=== PATIENT | female | born 1940 | race Caucasian/White ===

== ENCOUNTER 2017-06-30 05:38 | Inpatient (IN) | payer MEDICARE, OTHER ==
[~2017-06-30] VITALS: Ht 160 cm; Wt 80.0 kg
[2017-06-30] MEDS ORDERED: ONDANSETRON HCL 4 MG/2 ML VIAL ONE ×2 (06:15→10:49)
[2017-06-30] MEDS ORDERED: SODIUM CHLORIDE 0.9% 500 ML IV ONE (06:30)
[2017-06-30] MEDS ORDERED: PANTOPRAZOLE 40 MG/10 ML VIAL IV ONE (06:30)
[2017-06-30] MEDS ORDERED: MORPHINE SULFATE 10 MG/ML INJ 1ML SDV IV ONE (06:30)
[2017-06-30 06:40] LABS: Basophils # (auto) 0 uL; Basophils % (auto) 0.4 % (0.0-2.0); Eosinophils # (auto) 0 uL; Hematocrit 46.2 % (36.0-46.0); Hemoglobin 15.7 g/dL (12.2-16.2); Lymphocytes # (auto) 1.2 uL; Lymphocytes % (auto) 10.4 % (10.0-50.0); Mean Corpuscular Hemoglobin 32.1 pg (28.0-32.0); Mean Corpuscular Hgb Conc. 34.1 g/dL (32.0-36.0); Mean Corpuscular Volume 94.2 fL (80.0-100.0); Mean Platelet Volume 7.6 fL (6.9-10.8); Monocytes # (auto) 0.7 uL; Monocytes % (auto) 5.7 % (0.0-12.0); Neutrophils # (auto) 9.8 uL; Neutrophils % (auto) 83.5 % (37.0-80.0); Platelet Count (auto) 334 10^3/uL (140-450); Red Cell Distribution Width 13.4 % (11.8-14.3); White Blood Cell 11.8 10^3/uL (4.4-10.8)
[2017-06-30 06:57] LABS: Albumin 3.5 g/dL (3.4-5.0); Amylase 33 U/L (25-115); Anion Gap 12 (5-15); Aspartate Aminotransferase 24 U/L (15-37); BUN/Creatinine Ratio 14.7; Blood Urea Nitrogen 10 mg/dL (7-18); Calcium 11.7 mg/dL (8.5-10.1); Carbon Dioxide 23 mmol/L (21-32); Chloride 96 mmol/L (98-107); GFR African American 108 mL/min; GFR Non-African American 89 mL/min; Glucose 167 mg/dL (74-106); Magnesium 1.7 mg/dL (1.6-2.6); Sodium 131 mmol/L (136-145)
[2017-06-30 07:02] LABS: Alkaline Phosphatase 77 U/L (45-117); Bilirubin, Total 0.7 mg/dL (0.2-1.0); Total Protein 7.6 g/dL (6.4-8.2)
[2017-06-30 07:21] LABS: INR 0.98 (0.9-1.15); Prothrombin Time 10.7 sec (9.37-12.3)
[2017-06-30] MEDS ORDERED: PIPERACILLIN-TAZOB 3.375GM 100 ML IV ONE (07:30)
[2017-06-30] MEDS ORDERED: SODIUM CHLORIDE 0.9% 1,000 ML IV ONE ×2 (07:30→08:00)
[2017-06-30 07:34] LABS: Partial Thromboplastin Time 27.3 sec (22.64-33.71)
[2017-06-30] MEDS ORDERED: ONDANSETRON HCL 4 MG/2 ML VIAL IV PRN (08:00)
[2017-06-30] MEDS ORDERED: MORPHINE SULFATE 10 MG/ML INJ 1ML SDV IV PRN (08:00)
[2017-06-30] MEDS ORDERED: ALBUTEROL SULF 2.5 MG/0.5ML(0.5%) NEB SOLN NEB PRN ×2 (08:00→13:45)
[2017-06-30 09:25] VITALS: BP 141/57
[2017-06-30] MEDS ORDERED: LISINOPRIL 20 MG TAB PO SCH (10:00)
[2017-06-30 10:39] LABS: Urine RBC None Seen /hpf (0 - 4)
[2017-06-30] MEDS ORDERED: CISATRACURIUM BESYLATE (2MG/ML) 5ML VIAL IV ONE (10:46)
[2017-06-30] MEDS ORDERED: SUCCINYLCHOLINE CHLORIDE 20 MG/ML 10ML VIAL IV ONE (10:47)
[2017-06-30] MEDS ORDERED: PROPOFOL 10 MG/ML 20 ML IV ONE (10:49)
[2017-06-30] MEDS ORDERED: METOCLOPRAMIDE HCL 5MG/ml INJ 2ml VIAL ONE (10:49)
[2017-06-30] MEDS ORDERED: LIDOCAINE HCL 2 %PF INJ 10ML AMP IJ ONE (10:49)
[2017-06-30] MEDS ORDERED: fentaNYL CITRATE 100 MCG/2 ML VL ONE (10:49)
[2017-06-30] MEDS ORDERED: DEXAMETHASONE SOD PHOS 10MG/1ML VIAL INJ ONE (10:49)
[2017-06-30 10:56] LABS: Urine Bilirubin Negative (Negative); Urine Blood Negative /uL (Negative); Urine Color Yellow (Yellow); Urine Glucose Normal (Normal); Urine Ketone 2+ (Negative); Urine Mucus FEW (None Seen); Urine Nitrite Negative (Negative); Urine Squamous Epithelial Cell FEW /hpf (<5); Urine Urobilinogen Normal (Negative); Urine pH 5.5 (5.0-8.0)
[2017-06-30] MEDS ORDERED: GLYCOPYRROLATE 0.2 MG/ML 1ML VIAL ONE (11:47)
[2017-06-30] MEDS ORDERED: NEOSTIGMINE 1 MG/ML INJ (10mg/10ML VIAL) ONE (11:47)
[2017-06-30] MEDS ORDERED: METOPROLOL TARTRATE 1MG/1ML-5ML VIAL IV ONE (12:01)
[2017-06-30] MEDS ORDERED: HYDROmorphone HCL 2 MG/ML VL IV PRN (12:30)
[2017-06-30] MEDS ORDERED: KETOROLAC TROMETH 30 MG/ML 1ML VIAL IV ONE (12:30)
[2017-06-30] MEDS ORDERED: ONDANSETRON HCL 4 MG/2 ML VIAL IV ONE (12:30)
[2017-06-30] MEDS ORDERED: hydrALAZINE HCL 20 MG/ML VL IV PRN ×2 (12:30→13:45)
[2017-06-30] MEDS ORDERED: LABETALOL HCL 5 MG/ML 4ML SYRINGE IV PRN (12:30)
[2017-06-30] MEDS ORDERED: IPRATROPIUM BROM 0.5 MG/2.5ML INH SOL NEB PRN (13:45)
[2017-06-30] MEDS: SODIUM CHLORIDE 0.9% 1,000 ML IV SCH (13:45)
[2017-06-30 17:18] VITALS: BP 121/95
[2017-06-30] MEDS: metroNIDAZOLE 500MG/100ML 100 ML IV SCH ×2 (17:23→21:38)
[2017-06-30] MEDS: ALBUTEROL SULF 2.5 MG/0.5ML(0.5%) NEB SOLN NEB SCH (18:37)
[2017-06-30] MEDS: IPRATROPIUM BROM 0.5 MG/2.5ML INH SOL NEB SCH (18:37)
[2017-06-30] MEDS ORDERED: LISI-646 PO (18:57)
[2017-06-30] MEDS ORDERED: THEO400T PO (18:57)
[2017-06-30] MEDS ORDERED: FLUT250M2 INH (18:57)
[2017-06-30 20:00] VITALS: BP_SYST 116; BP_SYST 123; BP_DIAS 56; BP_DIAS 66
[2017-06-30 21:17] VITALS: BP 121/95
[2017-06-30] MEDS: HYDROmorphone HCL 2 MG/ML VL IV PRN (21:39)
[2017-06-30 22:00] VITALS: BP 116/66
[2017-07-01] VITALS (7 sets, daily range): BP systolic 110–134; BP diastolic 56–82
[2017-07-01] MEDS: SODIUM CHLORIDE 0.9% 1,000 ML IV SCH ×2 (03:08→16:25)
[2017-07-01] MEDS: metroNIDAZOLE 500MG/100ML 100 ML IV SCH ×3 (05:30→21:55)
[2017-07-01] MEDS: ALBUTEROL SULF 2.5 MG/0.5ML(0.5%) NEB SOLN NEB SCH ×3 (06:36→19:08)
[2017-07-01] MEDS: IPRATROPIUM BROM 0.5 MG/2.5ML INH SOL NEB SCH ×3 (06:36→19:08)
[2017-07-01 07:40] LABS: Basophils # (auto) 0 uL; Basophils % (auto) 0.1 % (0.0-2.0); Eosinophils # (auto) 0 uL; Hematocrit 39.5 % (36.0-46.0); Hemoglobin 13.1 g/dL (12.2-16.2); Lymphocytes # (auto) 1.4 uL; Lymphocytes % (auto) 11.4 % (10.0-50.0); Mean Corpuscular Hemoglobin 32.5 pg (28.0-32.0); Mean Corpuscular Hgb Conc. 33.2 g/dL (32.0-36.0); Mean Corpuscular Volume 97.7 fL (80.0-100.0); Mean Platelet Volume 7.6 fL (6.9-10.8); Monocytes # (auto) 1.1 uL; Monocytes % (auto) 9.2 % (0.0-12.0); Neutrophils # (auto) 9.6 uL; Neutrophils % (auto) 79.3 % (37.0-80.0); Platelet Count (auto) 244 10^3/uL (140-450); Red Cell Distribution Width 14.2 % (11.8-14.3); White Blood Cell 12.1 10^3/uL (4.4-10.8)
[2017-07-01 08:13] LABS: Albumin 2.7 g/dL (3.4-5.0); BUN/Creatinine Ratio 18.8; Bilirubin, Total 0.4 mg/dL (0.2-1.0); Calcium 9.5 mg/dL (8.5-10.1); Potassium 4.7 mmol/L (3.5-5.1); Total Protein 6.4 g/dL (6.4-8.2)
[2017-07-01] MEDS: cefTRIAXone 1GM/50ML D5W 50 ML IV SCH (08:40)
[2017-07-01] MEDS ORDERED: POTASSIUM CHLORIDE 20 MEQ, LIDOCAINE 1% (LOCAL ANESTH.) 2 ML in SODIUM CHL 0.9% 100 ML IV ONE (10:00)
[2017-07-01] MEDS ORDERED: FUROSEMIDE 20 MG/2 ML VIAL IV ONE (10:00)
[2017-07-01] MEDS ORDERED: PIPERACILLIN IV ONE (13:09)
[2017-07-01] MEDS ORDERED: TAZOBACTAM IV ONE (13:09)
[2017-07-01] MEDS: HYDROmorphone HCL 2 MG/ML VL IV PRN (21:55)
[2017-07-02] MEDS: ONDANSETRON HCL 4 MG/2 ML VIAL IV PRN ×2 (02:20→10:54)
[2017-07-02] MEDS: HYDROmorphone HCL 2 MG/ML VL IV PRN ×3 (02:20→21:48)
[2017-07-02] MEDS: ALBUTEROL SULF 2.5 MG/0.5ML(0.5%) NEB SOLN NEB SCH ×4 (02:21→19:21)
[2017-07-02 05:00] VITALS: BP 150/68
[2017-07-02] MEDS: metroNIDAZOLE 500MG/100ML 100 ML IV SCH ×3 (05:48→21:47)
[2017-07-02] MEDS: SODIUM CHLORIDE 0.9% 1,000 ML IV SCH ×2 (05:48→19:05)
[2017-07-02 06:33] LABS: BUN/Creatinine Ratio 29.3; Calcium 8.8 mg/dL (8.5-10.1); Magnesium 2.4 mg/dL (1.6-2.6); Potassium 4.3 mmol/L (3.5-5.1)
[2017-07-02 06:34] LABS: Basophils # (auto) 0 uL; Basophils % (auto) 0.1 % (0.0-2.0); Eosinophils # (auto) 0 uL; Eosinophils % (auto) 0.1 % (0.0-7.0); Hematocrit 39.8 % (36.0-46.0); Hemoglobin 13.3 g/dL (12.2-16.2); Lymphocytes # (auto) 1.4 uL; Lymphocytes % (auto) 12.1 % (10.0-50.0); Mean Corpuscular Hemoglobin 32.7 pg (28.0-32.0); Mean Corpuscular Hgb Conc. 33.4 g/dL (32.0-36.0); Mean Corpuscular Volume 98.2 fL (80.0-100.0); Mean Platelet Volume 7.8 fL (6.9-10.8); Monocytes # (auto) 1.2 uL; Monocytes % (auto) 10.5 % (0.0-12.0); Neutrophils # (auto) 8.9 uL; Neutrophils % (auto) 77.2 % (37.0-80.0); Platelet Count (auto) 253 10^3/uL (140-450); White Blood Cell 11.6 10^3/uL (4.4-10.8)
[2017-07-02] MEDS: IPRATROPIUM BROM 0.5 MG/2.5ML INH SOL NEB SCH ×4 (06:59→19:21)
[2017-07-02] MEDS: cefTRIAXone 1GM/50ML D5W 50 ML IV SCH (08:49)
[2017-07-02 09:00] VITALS: BP 131/76
[2017-07-02 13:07] VITALS: BP 96/50
[2017-07-02 16:43] VITALS: BP 121/56
[2017-07-02] MEDS ORDERED: FAMOTIDINE (10MG/ML) 2ML VL IV ONE (18:15)
[2017-07-02 20:00] VITALS: BP 140/74
[2017-07-02 21:47] VITALS: BP 140/74
[2017-07-03] MEDS: IPRATROPIUM BROM 0.5 MG/2.5ML INH SOL NEB SCH ×4 (00:22→19:01)
[2017-07-03] MEDS: ALBUTEROL SULF 2.5 MG/0.5ML(0.5%) NEB SOLN NEB SCH ×4 (00:22→19:01)
[2017-07-03 04:58] VITALS: BP 107/44
[2017-07-03] MEDS: metroNIDAZOLE 500MG/100ML 100 ML IV SCH ×3 (05:32→21:37)
[2017-07-03 09:59] VITALS: BP 112/69
[2017-07-03] MEDS: HYDROcodone-ACET 5/325MG TAB PO PRN (10:03)
[2017-07-03] MEDS: SODIUM CHLORIDE 0.9% 1,000 ML IV SCH ×2 (10:33→21:36)
[2017-07-03] MEDS: cefTRIAXone 1GM/50ML D5W 50 ML IV SCH (12:01)
[2017-07-03] MEDS: FAMOTIDINE (10MG/ML) 2ML VL IV SCH (12:01)
[2017-07-03 13:00] VITALS: BP 123/75
[2017-07-03 16:26] VITALS: BP 108/53
[2017-07-03 20:00] VITALS: BP 113/69
[2017-07-03] MEDS: HYDROmorphone HCL 2 MG/ML VL IV PRN (21:01)
[2017-07-03 22:00] VITALS: BP 113/69
[2017-07-04] MEDS: HYDROmorphone HCL 2 MG/ML VL IV PRN ×3 (03:20→20:32)
[2017-07-04] MEDS: ONDANSETRON HCL 4 MG/2 ML VIAL IV PRN (04:58)
[2017-07-04 05:11] VITALS: BP 114/70
[2017-07-04] MEDS: metroNIDAZOLE 500MG/100ML 100 ML IV SCH ×3 (05:40→21:58)
[2017-07-04] MEDS: IPRATROPIUM BROM 0.5 MG/2.5ML INH SOL NEB SCH ×4 (05:49→19:13)
[2017-07-04] MEDS: ALBUTEROL SULF 2.5 MG/0.5ML(0.5%) NEB SOLN NEB SCH ×2 (05:49)
[2017-07-04 06:20] LABS: Basophils # (auto) 0 uL; Basophils % (auto) 0.1 % (0.0-2.0); Eosinophils # (auto) 0.1 uL; Hematocrit 41.3 % (36.0-46.0); Hemoglobin 13.8 g/dL (12.2-16.2); Lymphocytes # (auto) 1.8 uL; Lymphocytes % (auto) 18.7 % (10.0-50.0); Mean Corpuscular Hemoglobin 32.6 pg (28.0-32.0); Mean Corpuscular Hgb Conc. 33.3 g/dL (32.0-36.0); Mean Corpuscular Volume 97.9 fL (80.0-100.0); Mean Platelet Volume 7.5 fL (6.9-10.8); Monocytes # (auto) 1.1 uL; Monocytes % (auto) 11.9 % (0.0-12.0); Neutrophils # (auto) 6.4 uL; Neutrophils % (auto) 68.3 % (37.0-80.0); Nucleated Red Blood Cells % 0.1 %; Platelet Count (auto) 282 10^3/uL (140-450); Red Cell Distribution Width 13.9 % (11.8-14.3); White Blood Cell 9.4 10^3/uL (4.4-10.8)
[2017-07-04] MEDS: cefTRIAXone 1GM/50ML D5W 50 ML IV SCH (08:51)
[2017-07-04 09:45] VITALS: BP 131/76
[2017-07-04] MEDS ORDERED: DIGOXIN (250MCG/ML) 2 ML AMPULE IV ONE (10:30)
[2017-07-04] MEDS ORDERED: METOPROLOL TARTRATE 50 MG TAB PO ONE (10:30)
[2017-07-04] MEDS ORDERED: ENOXAPARIN SOD 40 MG/0.4 ML SYRINGE SC ONE (10:30)
[2017-07-04] MEDS: SODIUM CHLORIDE 0.9% 1,000 ML IV SCH (11:05)
[2017-07-04] MEDS: FAMOTIDINE (10MG/ML) 2ML VL IV SCH (11:43)
[2017-07-04 12:16] VITALS: BP 123/69
[2017-07-04] MEDS: HYDROcodone-ACET 5/325MG TAB PO PRN (12:21)
[2017-07-04 16:12] VITALS: BP 107/79
[2017-07-04 20:00] VITALS: BP 98/59
[2017-07-04] MEDS: METOPROLOL TARTRATE 50 MG TAB PO SCH (21:59)
[2017-07-04 22:00] VITALS: BP 98/49
[2017-07-05] MEDS: HYDROmorphone HCL 2 MG/ML VL IV PRN ×4 (03:13→21:59)
[2017-07-05] MEDS: SODIUM CHLORIDE 0.9% 1,000 ML IV SCH (03:58)
[2017-07-05 05:00] VITALS: BP 114/69
[2017-07-05] MEDS: IPRATROPIUM BROM 0.5 MG/2.5ML INH SOL NEB SCH ×5 (06:02→19:05)
[2017-07-05] MEDS: metroNIDAZOLE 500MG/100ML 100 ML IV SCH ×3 (06:04→21:59)
[2017-07-05 06:17] LABS: Basophils # (auto) 0 uL; Basophils % (auto) 0.2 % (0.0-2.0); Eosinophils # (auto) 0.1 uL; Eosinophils % (auto) 0.7 % (0.0-7.0); Hematocrit 43.4 % (36.0-46.0); Hemoglobin 14.6 g/dL (12.2-16.2); Lymphocytes # (auto) 2.5 uL; Lymphocytes % (auto) 22.6 % (10.0-50.0); Mean Corpuscular Hemoglobin 32.8 pg (28.0-32.0); Mean Corpuscular Hgb Conc. 33.7 g/dL (32.0-36.0); Mean Corpuscular Volume 97.5 fL (80.0-100.0); Mean Platelet Volume 7.8 fL (6.9-10.8); Monocytes # (auto) 1.5 uL; Monocytes % (auto) 13.2 % (0.0-12.0); Neutrophils % (auto) 63.3 % (37.0-80.0); Nucleated Red Blood Cells % 0.1 %; Platelet Count (auto) 225 10^3/uL (140-450); Red Cell Distribution Width 13.7 % (11.8-14.3)
[2017-07-05 06:38] LABS: BUN/Creatinine Ratio 34.9; Calcium 8.6 mg/dL (8.5-10.1); Potassium 4.3 mmol/L (3.5-5.1)
[2017-07-05 08:00] VITALS: BP 115/68
[2017-07-05] MEDS: cefTRIAXone 1GM/50ML D5W 50 ML IV SCH (08:18)
[2017-07-05 09:00] VITALS: BP 115/68
[2017-07-05] MEDS: FAMOTIDINE (10MG/ML) 2ML VL IV SCH (09:25)
[2017-07-05] MEDS: ENOXAPARIN SOD 40 MG/0.4 ML SYRINGE SC SCH (09:25)
[2017-07-05] MEDS: METOPROLOL TARTRATE 50 MG TAB PO SCH (09:25)
[2017-07-05] MEDS: METOPROLOL TARTRATE 25 MG TAB PO SCH ×2 (10:15→21:59)
[2017-07-05] MEDS: HYDROcodone-ACET 5/325MG TAB PO PRN (12:39)
[2017-07-05] MEDS ORDERED: GASTROGRAFIN 120 ML SOL ONE (13:27)
[2017-07-05 17:12] VITALS: BP 126/83
[2017-07-05 22:00] VITALS: BP 137/76
[2017-07-06] VITALS (61 sets, daily range): BP systolic 57–136; BP diastolic 26–95
[2017-07-06] MEDS: HYDROmorphone HCL 2 MG/ML VL IV PRN ×2 (01:59→06:00)
[2017-07-06] MEDS: SODIUM CHLORIDE 0.9% 1,000 ML IV SCH (03:17)
[2017-07-06] MEDS: metroNIDAZOLE 500MG/100ML 100 ML IV SCH (05:59)
[2017-07-06] MEDS: IPRATROPIUM BROM 0.5 MG/2.5ML INH SOL NEB SCH ×4 (06:22→18:09)
[2017-07-06 06:55] LABS: Basophils # (auto) 0 uL; Basophils % (auto) 0.2 % (0.0-2.0); Eosinophils # (auto) 0 uL; Hematocrit 51.4 % (36.0-46.0); Hemoglobin 16.9 g/dL (12.2-16.2); Lymphocytes # (auto) 1.1 uL; Lymphocytes % (auto) 8.3 % (10.0-50.0); Mean Corpuscular Hemoglobin 32.4 pg (28.0-32.0); Mean Corpuscular Hgb Conc. 32.9 g/dL (32.0-36.0); Mean Corpuscular Volume 98.5 fL (80.0-100.0); Mean Platelet Volume 8.2 fL (6.9-10.8); Monocytes # (auto) 1.1 uL; Monocytes % (auto) 7.8 % (0.0-12.0); Neutrophils # (auto) 11.4 uL; Neutrophils % (auto) 83.7 % (37.0-80.0); Nucleated Red Blood Cells % 0.2 %; Platelet Count (auto) 240 10^3/uL (140-450); White Blood Cell 13.7 10^3/uL (4.4-10.8)
[2017-07-06 07:27] LABS: BUN/Creatinine Ratio 32.3; Calcium 8.7 mg/dL (8.5-10.1); Magnesium 2.7 mg/dL (1.6-2.6); Potassium 4.7 mmol/L (3.5-5.1)
[2017-07-06] MEDS ORDERED: ROCURONIUM 10MG/ML 10ML VIAL IV ONE (08:44)
[2017-07-06] MEDS ORDERED: ETOMIDATE (2MG/ML) 20ML VIAL IV ONE (08:44)
[2017-07-06] MEDS ORDERED: SUCCINYLCHOLINE CHLORIDE 20 MG/ML 10ML VIAL IV ONE (08:45)
[2017-07-06] MEDS: MIDAZOLAM DRIP 50 mg/50mL 50 ML IV SCH ×2 (09:11→17:40)
[2017-07-06] MEDS: NOREPINEPHRINE 8 MG/250ML KIT 250 ML IV SCH ×2 (09:11→17:40)
[2017-07-06] MEDS ORDERED: SODIUM CHLORIDE 0.9% 1,000 ML IV SCH (09:15)
[2017-07-06] MEDS ORDERED: PIPERACILLIN-TAZOB 2.25GM 50 ML IV ONE (09:15)
[2017-07-06 10:12] LABS: Allen Test Yes; Base Excess -1.5 mmol/L (-2.0-2.0); Blood 02Sat 96.8 % (96-100); Blood COHb 0.6 % (0.5-1.5); Blood MetHb 0.2 % (0.0-1.5); HCO3 26.3 mmol/L (22-26.0); HHb 3.2 % (0.0-5.0); MODE VENT - A/C; PCO2 56.5 mmHg (35.0-45.0); PCO2(T) 60.3 mmHg (35.0-45.0); PO2 99.7 mmHg (80.0-100.0); PO2(T) 109.1 mmHg (80.0-100.0); Room 0264D; Sample Type Arterial; pH 7.286 (7.350-7.450)
[2017-07-06] MEDS: FAMOTIDINE (10MG/ML) 2ML VL IV SCH (10:56)
[2017-07-06] MEDS: ENOXAPARIN SOD 40 MG/0.4 ML SYRINGE SC SCH (10:56)
[2017-07-06] MEDS: PIPERACILLIN-TAZOB 2.25GM 50 ML IV SCH ×2 (12:00→18:42)
[2017-07-06] MEDS: ALBUTEROL SULF 2.5 MG/0.5ML(0.5%) NEB SOLN NEB SCH ×2 (12:05→18:09)
[2017-07-06 13:07] LABS: Allen Test Modified; Base Excess -0.5 mmol/L (-2.0-2.0); Blood 02Sat 95.9 % (96-100); Blood COHb 0.2 % (0.5-1.5); Blood MetHb 0.2 % (0.0-1.5); HCO3 25.4 mmol/L (22-26.0); HHb 4.1 % (0.0-5.0); MODE VENT - A/C; O2Hb 95.5 % (94.0-97.0); PCO2 45.6 mmHg (35.0-45.0); PCO2(T) 46.6 mmHg (35.0-45.0); PO2 84.1 mmHg (80.0-100.0); PO2(T) 86.9 mmHg (80.0-100.0); Room 0264D; Sample Type Arterial; pH 7.363 (7.350-7.450)
[2017-07-06 15:08] LABS: Eosinophils # (auto) 0 uL; Hemoglobin 18.1 g/dL (12.2-16.2); Nucleated Red Blood Cells % 0.1 %
[2017-07-06 15:11] LABS: Basophils # (auto) 0 uL; Basophils % (auto) 0.3 % (0.0-2.0); Hematocrit 54.6 % (36.0-46.0); Lymphocytes # (auto) 2.4 uL; Mean Corpuscular Hemoglobin 32.8 pg (28.0-32.0); Mean Corpuscular Hgb Conc. 33.2 g/dL (32.0-36.0); Monocytes % (auto) 12.4 % (0.0-12.0); Neutrophils # (auto) 11.6 uL; Neutrophils % (auto) 72.3 % (37.0-80.0); Platelet Count (auto) 203 10^3/uL (140-450)
[2017-07-06 15:13] LABS: Albumin 3.1 g/dL (3.4-5.0); BUN/Creatinine Ratio 27.8; Bilirubin, Total 0.5 mg/dL (0.2-1.0); Calcium 8.4 mg/dL (8.5-10.1); Potassium 4.9 mmol/L (3.5-5.1); Total Protein 7.2 g/dL (6.4-8.2)
[2017-07-06] MEDS ORDERED: SODIUM CHLORIDE 0.9% 1,000 ML IV ONE (16:15)
[2017-07-06] MEDS: SOD CHL 0.9%/ KCL 20MEQ 1,000 ML IV SCH ×2 (17:00→22:30)
[2017-07-06] MEDS ORDERED: LEVOFLOXACIN 500MG 100 ML IV SCH (20:00)
[2017-07-06] MEDS ORDERED: FUROSEMIDE 20 MG/2 ML VIAL IV ONE (22:30)
[2017-07-07] VITALS (103 sets, daily range): BP systolic 89–151; BP diastolic 43–88
[2017-07-07] MEDS: IPRATROPIUM BROM 0.5 MG/2.5ML INH SOL NEB SCH ×4 (00:16→18:16)
[2017-07-07] MEDS: ALBUTEROL SULF 2.5 MG/0.5ML(0.5%) NEB SOLN NEB SCH ×4 (00:16→18:16)
[2017-07-07] MEDS: PIPERACILLIN-TAZOB 3.375GM 100 ML IV SCH ×4 (00:19→18:01)
[2017-07-07] MEDS: NOREPINEPHRINE 8 MG/250ML KIT 250 ML IV SCH ×2 (00:20→08:17)
[2017-07-07] MEDS: MIDAZOLAM DRIP 50 mg/50mL 50 ML IV SCH ×4 (00:20→20:16)
[2017-07-07 03:30] LABS: Allen Test Yes; Base Excess 0.3 mmol/L (-2.0-2.0); Blood 02Sat 91.9 % (96-100); Blood COHb 1.3 % (0.5-1.5); Blood MetHb 0.1 % (0.0-1.5); HCO3 24.7 mmol/L (22-26.0); MODE VENT - A/C; O2Hb 90.6 % (94.0-97.0); PCO2 39.5 mmHg (35.0-45.0); PCO2(T) 39.5 mmHg (35.0-45.0); PO2 60.6 mmHg (80.0-100.0); PO2(T) 60.6 mmHg (80.0-100.0); Sample Type Arterial; pH 7.414 (7.350-7.450)
[2017-07-07] MEDS: SOD CHL 0.9%/ KCL 20MEQ 1,000 ML IV SCH (06:30)
[2017-07-07] MEDS: SODIUM CHLORIDE 0.9% 1,000 ML IV SCH ×2 (10:00→22:50)
[2017-07-07] MEDS: LEVOFLOXACIN 500MG 100 ML IV SCH (10:01)
[2017-07-07] MEDS: ENOXAPARIN SOD 40 MG/0.4 ML SYRINGE SC SCH (10:01)
[2017-07-07] MEDS: FAMOTIDINE (10MG/ML) 2ML VL IV SCH (10:01)
[2017-07-07 10:47] LABS: Basophils # (auto) 0 uL; Basophils % (auto) 0.2 % (0.0-2.0); Eosinophils # (auto) 0 uL; Eosinophils % (auto) 0.1 % (0.0-7.0); Hematocrit 44.4 % (36.0-46.0); Hemoglobin 14.5 g/dL (12.2-16.2); Lymphocytes # (auto) 2.7 uL; Lymphocytes % (auto) 18.4 % (10.0-50.0); Mean Corpuscular Hemoglobin 31.9 pg (28.0-32.0); Mean Corpuscular Hgb Conc. 32.7 g/dL (32.0-36.0); Mean Corpuscular Volume 97.5 fL (80.0-100.0); Mean Platelet Volume 8.6 fL (6.9-10.8); Neutrophils # (auto) 9.8 uL; Neutrophils % (auto) 67.3 % (37.0-80.0); Nucleated Red Blood Cells % 0.1 %; Platelet Count (auto) 177 10^3/uL (140-450); Red Cell Distribution Width 14.1 % (11.8-14.3); White Blood Cell 14.6 10^3/uL (4.4-10.8)
[2017-07-07 11:10] LABS: Albumin 2.4 g/dL (3.4-5.0); BUN/Creatinine Ratio 30.9; Bilirubin, Total 0.7 mg/dL (0.2-1.0); Calcium 7.8 mg/dL (8.5-10.1); Potassium 4.2 mmol/L (3.5-5.1); Total Protein 5.8 g/dL (6.4-8.2)
[2017-07-07] MEDS ORDERED: TPN PER PHARMACY 0 ML IV SCH (11:15)
[2017-07-07 11:36] LABS: Magnesium 2.4 mg/dL (1.6-2.6); Phosphorus 1.9 mg/dL (2.5-4.90)
[2017-07-07] MEDS ORDERED: DEXTROSE (50%) 50ML SYRG IV SCH (12:45)
[2017-07-07] MEDS: ACCU-CHEK COMFORT CURVE STRIP VI SCH (18:01)
[2017-07-07] MEDS: InsuLIN REG 1unit/0.01ml Soln (100units/ml) SC SCH (18:45)
[2017-07-07] MEDS ORDERED: TPN PER PHARMACY IV NR ×7 (20:00)
[2017-07-08] VITALS (88 sets, daily range): BP systolic 83–148; BP diastolic 41–90
[2017-07-08] MEDS: MIDAZOLAM DRIP 50 mg/50mL 50 ML IV SCH ×3 (00:01→21:25)
[2017-07-08] MEDS: PIPERACILLIN-TAZOB 3.375GM 100 ML IV SCH ×5 (00:01→23:57)
[2017-07-08] MEDS: ACCU-CHEK COMFORT CURVE STRIP VI SCH ×4 (00:04→18:06)
[2017-07-08] MEDS: InsuLIN REG 1unit/0.01ml Soln (100units/ml) SC SCH ×4 (00:05→18:00)
[2017-07-08] MEDS: ALBUTEROL SULF 2.5 MG/0.5ML(0.5%) NEB SOLN NEB SCH ×4 (00:10→18:59)
[2017-07-08] MEDS: IPRATROPIUM BROM 0.5 MG/2.5ML INH SOL NEB SCH ×4 (00:10→18:59)
[2017-07-08 03:36] LABS: Allen Test Yes; Base Excess 0.8 mmol/L (-2.0-2.0); Blood 02Sat 95.8 % (96-100); Blood COHb 0.7 % (0.5-1.5); Blood MetHb 0.2 % (0.0-1.5); HCO3 24.9 mmol/L (22-26.0); HHb 4.2 % (0.0-5.0); MODE VENT - A/C; O2Hb 94.9 % (94.0-97.0); PCO2 38.3 mmHg (35.0-45.0); PCO2(T) 38.3 mmHg (35.0-45.0); PO2 80.6 mmHg (80.0-100.0); PO2(T) 80.6 mmHg (80.0-100.0); Sample Type Arterial; pH 7.431 (7.350-7.450)
[2017-07-08 03:49] LABS: Basophils # (auto) 0.2 uL; Basophils % (auto) 1.5 % (0.0-2.0); Eosinophils # (auto) 0.1 uL; Eosinophils % (auto) 0.9 % (0.0-7.0); Hematocrit 40.1 % (36.0-46.0); Hemoglobin 13.2 g/dL (12.2-16.2); Lymphocytes # (auto) 2.7 uL; Lymphocytes % (auto) 21.6 % (10.0-50.0); Mean Corpuscular Hemoglobin 32.1 pg (28.0-32.0); Mean Corpuscular Hgb Conc. 32.9 g/dL (32.0-36.0); Mean Corpuscular Volume 97.4 fL (80.0-100.0); Mean Platelet Volume 8.2 fL (6.9-10.8); Monocytes # (auto) 1.7 uL; Monocytes % (auto) 14.1 % (0.0-12.0); Neutrophils # (auto) 7.6 uL; Neutrophils % (auto) 61.9 % (37.0-80.0); Nucleated Red Blood Cells % 0.2 %; Platelet Count (auto) 139 10^3/uL (140-450); White Blood Cell 12.3 10^3/uL (4.4-10.8)
[2017-07-08 04:11] LABS: Albumin 2.1 g/dL (3.4-5.0); BUN/Creatinine Ratio 25.5; Bilirubin, Total 0.5 mg/dL (0.2-1.0); Calcium 7.8 mg/dL (8.5-10.1); Magnesium 2.2 mg/dL (1.6-2.6); Phosphorus 1.3 mg/dL (2.5-4.90); Potassium 3.4 mmol/L (3.5-5.1); Total Protein 5.2 g/dL (6.4-8.2)
[2017-07-08] MEDS: FAMOTIDINE (10MG/ML) 2ML VL IV SCH (09:45)
[2017-07-08] MEDS: LEVOFLOXACIN 500MG 100 ML IV SCH (09:45)
[2017-07-08] MEDS: ENOXAPARIN SOD 40 MG/0.4 ML SYRINGE SC SCH (09:45)
[2017-07-08] MEDS ORDERED: SODIUM CHLORIDE 0.9% 1,000 ML IV SCH (10:45)
[2017-07-08] MEDS ORDERED: POTASSIUM PHOSPHATE 44 MEQ in NS 0.9% 250 ML IV ONE (10:45)
[2017-07-08] MEDS: NOREPINEPHRINE 8 MG/250ML KIT 250 ML IV SCH (14:30)
[2017-07-08] MEDS ORDERED: TPN PER PHARMACY IV NR ×9 (20:00)
[2017-07-09] VITALS (79 sets, daily range): BP systolic 78–121; BP diastolic 35–71
[2017-07-09] MEDS: ACCU-CHEK COMFORT CURVE STRIP VI SCH ×5 (00:05→23:54)
[2017-07-09] MEDS: InsuLIN REG 1unit/0.01ml Soln (100units/ml) SC SCH ×5 (00:13→23:54)
[2017-07-09] MEDS: ALBUTEROL SULF 2.5 MG/0.5ML(0.5%) NEB SOLN NEB SCH ×4 (00:26→18:35)
[2017-07-09] MEDS: IPRATROPIUM BROM 0.5 MG/2.5ML INH SOL NEB SCH ×4 (00:26→18:36)
[2017-07-09] MEDS: MIDAZOLAM DRIP 50 mg/50mL 50 ML IV SCH ×5 (02:55→23:45)
[2017-07-09 03:43] LABS: Allen Test Modified; Base Excess 3.2 mmol/L (-2.0-2.0); Blood 02Sat 95.9 % (96-100); Blood COHb 1.3 % (0.5-1.5); Blood MetHb 0.1 % (0.0-1.5); HCO3 27.9 mmol/L (22-26.0); MODE VENT - A/C; O2Hb 94.6 % (94.0-97.0); Sample Type Arterial
[2017-07-09 04:18] LABS: Basophils # (auto) 0 uL; Basophils % (auto) 0.1 % (0.0-2.0); Eosinophils # (auto) 0.3 uL; Eosinophils % (auto) 3.1 % (0.0-7.0); Hematocrit 38.3 % (36.0-46.0); Hemoglobin 12.8 g/dL (12.2-16.2); Lymphocytes % (auto) 19.3 % (10.0-50.0); Mean Corpuscular Hemoglobin 32.7 pg (28.0-32.0); Mean Corpuscular Hgb Conc. 33.3 g/dL (32.0-36.0); Mean Corpuscular Volume 98.1 fL (80.0-100.0); Monocytes # (auto) 1.2 uL; Monocytes % (auto) 11.2 % (0.0-12.0); Neutrophils % (auto) 66.3 % (37.0-80.0); Nucleated Red Blood Cells % 0.1 %; Platelet Count (auto) 112 10^3/uL (140-450); Red Cell Distribution Width 14.4 % (11.8-14.3); White Blood Cell 10.6 10^3/uL (4.4-10.8)
[2017-07-09 04:41] LABS: Albumin 1.9 g/dL (3.4-5.0); BUN/Creatinine Ratio 23.9; Bilirubin, Total 0.4 mg/dL (0.2-1.0); Calcium 7.8 mg/dL (8.5-10.1); Phosphorus 2.7 mg/dL (2.5-4.90); Potassium 3.7 mmol/L (3.5-5.1); Total Protein 5.2 g/dL (6.4-8.2)
[2017-07-09] MEDS: PIPERACILLIN-TAZOB 3.375GM 100 ML IV SCH ×4 (06:20→23:53)
[2017-07-09] MEDS: NOREPINEPHRINE 8 MG/250ML KIT 250 ML IV SCH ×2 (09:11→23:54)
[2017-07-09] MEDS: FAMOTIDINE (10MG/ML) 2ML VL IV SCH (11:10)
[2017-07-09] MEDS: ENOXAPARIN SOD 40 MG/0.4 ML SYRINGE SC SCH (11:11)
[2017-07-09] MEDS: LEVOFLOXACIN 500MG 100 ML IV SCH (11:11)
[2017-07-09] MEDS: D5W 5% 1,000 ML IV SCH (12:30)
[2017-07-09] MEDS: POTASSIUM CHL 20MEQ/50ML 50 ML IV SCH ×2 (12:30→14:30)
[2017-07-09] MEDS ORDERED: D5W/SOD CHLO 0.9% 1,000 ML IV SCH (12:30)
[2017-07-09] MEDS ORDERED: SODIUM CHLORIDE 0.9% 1,000 ML IV SCH (12:50)
[2017-07-09] MEDS ORDERED: TPN PER PHARMACY IV NR ×10 (20:00)
[2017-07-10] VITALS (108 sets, daily range): BP systolic 81–133; BP diastolic 40–83
[2017-07-10] MEDS: ALBUTEROL SULF 2.5 MG/0.5ML(0.5%) NEB SOLN NEB SCH ×4 (00:14→18:33)
[2017-07-10] MEDS: IPRATROPIUM BROM 0.5 MG/2.5ML INH SOL NEB SCH ×4 (00:14→18:33)
[2017-07-10] MEDS: D5W 5% 1,000 ML IV SCH (01:06)
[2017-07-10 03:56] LABS: Basophils # (auto) 0 uL; Basophils % (auto) 0.2 % (0.0-2.0); Eosinophils # (auto) 0.6 uL; Eosinophils % (auto) 4.8 % (0.0-7.0); Hematocrit 38.6 % (36.0-46.0); Hemoglobin 12.6 g/dL (12.2-16.2); Lymphocytes # (auto) 1.8 uL; Lymphocytes % (auto) 13.8 % (10.0-50.0); Mean Corpuscular Hemoglobin 32.3 pg (28.0-32.0); Mean Corpuscular Hgb Conc. 32.7 g/dL (32.0-36.0); Mean Corpuscular Volume 98.6 fL (80.0-100.0); Mean Platelet Volume 9.3 fL (6.9-10.8); Monocytes # (auto) 1.1 uL; Monocytes % (auto) 8.7 % (0.0-12.0); Neutrophils # (auto) 9.4 uL; Neutrophils % (auto) 72.5 % (37.0-80.0); Nucleated Red Blood Cells % 0.1 %; Platelet Count (auto) 115 10^3/uL (140-450); Red Cell Distribution Width 14.2 % (11.8-14.3); White Blood Cell 12.9 10^3/uL (4.4-10.8)
[2017-07-10] MEDS: MIDAZOLAM DRIP 50 mg/50mL 50 ML IV SCH ×3 (04:15→21:00)
[2017-07-10 04:24] LABS: Albumin 1.9 g/dL (3.4-5.0); BUN/Creatinine Ratio 28.6; Bilirubin, Total 0.5 mg/dL (0.2-1.0); Magnesium 2.1 mg/dL (1.6-2.6); Phosphorus 2.1 mg/dL (2.5-4.90); Potassium 4.1 mmol/L (3.5-5.1); Total Protein 5.3 g/dL (6.4-8.2)
[2017-07-10 04:48] LABS: Allen Test Modified; Base Excess 3.9 mmol/L (-2.0-2.0); Blood 02Sat 95.9 % (96-100); Blood COHb 0.8 % (0.5-1.5); Blood MetHb 0.1 % (0.0-1.5); HCO3 29.4 mmol/L (22-26.0); HHb 4.1 % (0.0-5.0); MODE VENT - A/C; PCO2 47.7 mmHg (35.0-45.0); PCO2(T) 47.7 mmHg (35.0-45.0); Sample Type Arterial; pH 7.408 (7.350-7.450)
[2017-07-10] MEDS: PIPERACILLIN-TAZOB 3.375GM 100 ML IV SCH ×3 (05:39→18:25)
[2017-07-10] MEDS: ACCU-CHEK COMFORT CURVE STRIP VI SCH ×3 (05:39→18:25)
[2017-07-10] MEDS: InsuLIN REG 1unit/0.01ml Soln (100units/ml) SC SCH ×3 (05:39→18:00)
[2017-07-10] MEDS ORDERED: VANCOMYCIN PER PHARMACY 0 MG IV SCH (08:00)
[2017-07-10] MEDS ORDERED: NEUTRA-PHOS TABLET PO ONE (08:00)
[2017-07-10] MEDS ORDERED: FUROSEMIDE 40 MG/4 ML VIAL IV ONE ×2 (08:00→08:15)
[2017-07-10] MEDS ORDERED: metroNIDAZOLE 500MG/100ML 100 ML IV SCH (08:14)
[2017-07-10] MEDS: FAMOTIDINE (10MG/ML) 2ML VL IV SCH (10:17)
[2017-07-10] MEDS: ENOXAPARIN SOD 40 MG/0.4 ML SYRINGE SC SCH (10:17)
[2017-07-10] MEDS ORDERED: POTASSIUM PHOSPHATE 22 MEQ in SODIUM CHL 0.9% 100 ML IV ONE (11:30)
[2017-07-10] MEDS: VANCOMYCIN 1,250 MG in D5W 5% 250 ML IV SCH (12:14)
[2017-07-10] MEDS: metroNIDAZOLE 500MG/100ML 100 ML IV SCH ×2 (14:00→19:29)
[2017-07-10] MEDS: TPN PER PHARMACY IV NR ×10 (19:18)
[2017-07-11] VITALS (103 sets, daily range): BP systolic 82–139; BP diastolic 36–77
[2017-07-11] MEDS: InsuLIN REG 1unit/0.01ml Soln (100units/ml) SC SCH ×5 (00:05→23:46)
[2017-07-11] MEDS: PIPERACILLIN-TAZOB 3.375GM 100 ML IV SCH ×5 (00:05→23:46)
[2017-07-11] MEDS: ACCU-CHEK COMFORT CURVE STRIP VI SCH ×5 (00:05→23:46)
[2017-07-11] MEDS: ALBUTEROL SULF 2.5 MG/0.5ML(0.5%) NEB SOLN NEB SCH ×5 (00:36→23:59)
[2017-07-11] MEDS: IPRATROPIUM BROM 0.5 MG/2.5ML INH SOL NEB SCH ×5 (00:36→23:59)
[2017-07-11] MEDS: metroNIDAZOLE 500MG/100ML 100 ML IV SCH ×2 (01:55→08:20)
[2017-07-11] MEDS: MIDAZOLAM DRIP 50 mg/50mL 50 ML IV SCH ×3 (02:40→20:27)
[2017-07-11] MEDS: VANCOMYCIN 1,250 MG in D5W 5% 250 ML IV SCH ×2 (03:28→22:17)
[2017-07-11 03:54] LABS: Basophils # (auto) 0 uL; Basophils % (auto) 0.3 % (0.0-2.0); Eosinophils # (auto) 0.7 uL; Hematocrit 38.3 % (36.0-46.0); Hemoglobin 12.8 g/dL (12.2-16.2); Lymphocytes # (auto) 2.1 uL; Lymphocytes % (auto) 14.3 % (10.0-50.0); Mean Corpuscular Hemoglobin 32.4 pg (28.0-32.0); Mean Corpuscular Hgb Conc. 33.4 g/dL (32.0-36.0); Mean Corpuscular Volume 96.9 fL (80.0-100.0); Mean Platelet Volume 9.6 fL (6.9-10.8); Monocytes # (auto) 1.4 uL; Monocytes % (auto) 9.5 % (0.0-12.0); Neutrophils # (auto) 10.4 uL; Neutrophils % (auto) 70.9 % (37.0-80.0); Platelet Count (auto) 146 10^3/uL (140-450); Red Cell Distribution Width 14.1 % (11.8-14.3); White Blood Cell 14.6 10^3/uL (4.4-10.8)
[2017-07-11 04:23] LABS: Albumin 1.9 g/dL (3.4-5.0); BUN/Creatinine Ratio 27.1; Bilirubin, Total 0.6 mg/dL (0.2-1.0); Magnesium 2.1 mg/dL (1.6-2.6); Phosphorus 2.6 mg/dL (2.5-4.90); Total Protein 5.6 g/dL (6.4-8.2)
[2017-07-11] MEDS: NOREPINEPHRINE 8 MG/250ML KIT 250 ML IV SCH (05:15)
[2017-07-11 05:18] LABS: Allen Test Modified; Base Excess 5.5 mmol/L (-2.0-2.0); Blood 02Sat 96.3 % (96-100); Blood COHb 0.9 % (0.5-1.5); Blood MetHb 0.1 % (0.0-1.5); HHb 3.7 % (0.0-5.0); MODE VENT - A/C; O2Hb 95.3 % (94.0-97.0); PCO2 48.3 mmHg (35.0-45.0); PCO2(T) 48.3 mmHg (35.0-45.0); PO2 87.9 mmHg (80.0-100.0); PO2(T) 87.9 mmHg (80.0-100.0); Sample Type Arterial; pH 7.425 (7.350-7.450)
[2017-07-11] MEDS: ENOXAPARIN SOD 40 MG/0.4 ML SYRINGE SC SCH (09:30)
[2017-07-11] MEDS: FAMOTIDINE (10MG/ML) 2ML VL IV SCH (09:30)
[2017-07-11] MEDS ORDERED: METOCLOPRAMIDE HCL 5MG/ml INJ 2ml VIAL IV ONE (13:00)
[2017-07-11] MEDS ORDERED: FLUCONAZOLE 200MG/100ML 100 ML IV ONE (13:00)
[2017-07-11] MEDS: ALBUMIN 25% 50 ML IV SCH ×2 (15:06→21:38)
[2017-07-11] MEDS: METOCLOPRAMIDE HCL 5MG/ml INJ 2ml VIAL IV SCH ×2 (15:06→21:38)
[2017-07-11] MEDS: TPN PER PHARMACY IV NR ×10 (18:56)
[2017-07-11] MEDS ORDERED: TPN PER PHARMACY IV NR ×11 (20:00)
[2017-07-12] VITALS (100 sets, daily range): BP systolic 81–152; BP diastolic 37–85
[2017-07-12] MEDS: MIDAZOLAM DRIP 50 mg/50mL 50 ML IV SCH ×3 (01:30→16:10)
[2017-07-12 03:44] LABS: Basophils # (auto) 0 uL; Basophils % (auto) 0.1 % (0.0-2.0); Eosinophils # (auto) 0.4 uL; Eosinophils % (auto) 3.8 % (0.0-7.0); Hematocrit 36.5 % (36.0-46.0); Lymphocytes # (auto) 1.9 uL; Lymphocytes % (auto) 16.1 % (10.0-50.0); Mean Corpuscular Hemoglobin 32.2 pg (28.0-32.0); Mean Corpuscular Hgb Conc. 32.8 g/dL (32.0-36.0); Mean Corpuscular Volume 98.1 fL (80.0-100.0); Mean Platelet Volume 9.4 fL (6.9-10.8); Monocytes # (auto) 1.4 uL; Monocytes % (auto) 11.5 % (0.0-12.0); Neutrophils # (auto) 8.1 uL; Neutrophils % (auto) 68.5 % (37.0-80.0); Nucleated Red Blood Cells % 0.1 %; Platelet Count (auto) 158 10^3/uL (140-450); Red Cell Distribution Width 14.1 % (11.8-14.3); White Blood Cell 11.8 10^3/uL (4.4-10.8)
[2017-07-12 04:01] LABS: Albumin 2.4 g/dL (3.4-5.0); BUN/Creatinine Ratio 28.1; Bilirubin, Total 0.7 mg/dL (0.2-1.0); Calcium 8.3 mg/dL (8.5-10.1); Magnesium 2.3 mg/dL (1.6-2.6); Phosphorus 2.5 mg/dL (2.5-4.90); Potassium 4.2 mmol/L (3.5-5.1); Total Protein 5.8 g/dL (6.4-8.2)
[2017-07-12] MEDS: HYDROmorphone HCL 2 MG/ML VL IV PRN (04:04)
[2017-07-12] MEDS: InsuLIN REG 1unit/0.01ml Soln (100units/ml) SC SCH ×4 (05:38→23:55)
[2017-07-12] MEDS: ALBUMIN 25% 50 ML IV SCH ×3 (05:38→21:56)
[2017-07-12] MEDS: ACCU-CHEK COMFORT CURVE STRIP VI SCH ×4 (05:38→23:55)
[2017-07-12] MEDS: METOCLOPRAMIDE HCL 5MG/ml INJ 2ml VIAL IV SCH ×3 (05:38→21:56)
[2017-07-12] MEDS: PIPERACILLIN-TAZOB 3.375GM 100 ML IV SCH ×4 (06:04→23:56)
[2017-07-12] MEDS: IPRATROPIUM BROM 0.5 MG/2.5ML INH SOL NEB SCH ×3 (06:19→18:27)
[2017-07-12] MEDS: ALBUTEROL SULF 2.5 MG/0.5ML(0.5%) NEB SOLN NEB SCH ×3 (06:19→18:27)
[2017-07-12 07:29] LABS: Allen Test Yes; Base Excess 3.6 mmol/L (-2.0-2.0); Blood 02Sat 96.4 % (96-100); Blood COHb 0.8 % (0.5-1.5); Blood MetHb 0.1 % (0.0-1.5); HCO3 28.1 mmol/L (22-26.0); HHb 3.6 % (0.0-5.0); MODE VENT - A/C; O2Hb 95.5 % (94.0-97.0); PO2 93.7 mmHg (80.0-100.0); PO2(T) 93.7 mmHg (80.0-100.0); Sample Type Arterial; pH 7.443 (7.350-7.450)
[2017-07-12] MEDS ORDERED: NOREPINEPHRINE 8 MG/250ML KIT 250 ML IV ONE (08:40)
[2017-07-12] MEDS ORDERED: VITAMINS A & D (TOPICAL) OINT 5GM TOP ONE (08:40)
[2017-07-12] MEDS ORDERED: TPN PER PHARMACY IV NR ×21 (09:00→20:00)
[2017-07-12] MEDS: NOREPINEPHRINE 8 MG/250ML KIT 250 ML IV SCH (09:11)
[2017-07-12] MEDS: FAMOTIDINE (10MG/ML) 2ML VL IV SCH (09:38)
[2017-07-12] MEDS: FLUCONAZOLE 200MG/100ML 100 ML IV SCH (09:38)
[2017-07-12] MEDS: ENOXAPARIN SOD 40 MG/0.4 ML SYRINGE SC SCH (09:39)
[2017-07-12] MEDS: VANCOMYCIN 1,250 MG in D5W 5% 250 ML IV SCH (16:16)
[2017-07-13] VITALS (100 sets, daily range): BP systolic 87–161; BP diastolic 39–99
[2017-07-13] MEDS: ALBUTEROL SULF 2.5 MG/0.5ML(0.5%) NEB SOLN NEB SCH ×4 (00:27→18:33)
[2017-07-13] MEDS: IPRATROPIUM BROM 0.5 MG/2.5ML INH SOL NEB SCH ×4 (00:27→18:33)
[2017-07-13 04:09] LABS: Albumin 2.7 g/dL (3.4-5.0); BUN/Creatinine Ratio 27.3; Bilirubin, Total 0.6 mg/dL (0.2-1.0); Calcium 8.7 mg/dL (8.5-10.1); Magnesium 2.2 mg/dL (1.6-2.6); Phosphorus 2.6 mg/dL (2.5-4.90); Potassium 4.4 mmol/L (3.5-5.1); Total Protein 5.7 g/dL (6.4-8.2)
[2017-07-13] MEDS: VANCOMYCIN 1,250 MG in D5W 5% 250 ML IV SCH ×2 (04:17→16:00)
[2017-07-13] MEDS: ACCU-CHEK COMFORT CURVE STRIP VI SCH ×4 (06:35→23:30)
[2017-07-13] MEDS: METOCLOPRAMIDE HCL 5MG/ml INJ 2ml VIAL IV SCH ×3 (06:47→22:04)
[2017-07-13] MEDS: PIPERACILLIN-TAZOB 3.375GM 100 ML IV SCH ×4 (06:47→23:38)
[2017-07-13] MEDS: ALBUMIN 25% 50 ML IV SCH ×3 (06:47→22:06)
[2017-07-13] MEDS: InsuLIN REG 1unit/0.01ml Soln (100units/ml) SC SCH ×4 (06:48→23:30)
[2017-07-13] MEDS: MIDAZOLAM DRIP 50 mg/50mL 50 ML IV SCH ×2 (07:37→09:36)
[2017-07-13 07:41] LABS: Allen Test Yes; Base Excess 3.7 mmol/L (-2.0-2.0); Blood 02Sat 96.7 % (96-100); Blood COHb 0.7 % (0.5-1.5); Blood MetHb 0.1 % (0.0-1.5); HCO3 28.4 mmol/L (22-26.0); HHb 3.3 % (0.0-5.0); MODE VENT - A/C; O2Hb 95.9 % (94.0-97.0); PCO2 43.4 mmHg (35.0-45.0); PCO2(T) 43.4 mmHg (35.0-45.0); PO2 95.5 mmHg (80.0-100.0); PO2(T) 95.5 mmHg (80.0-100.0); Sample Type Arterial; pH 7.434 (7.350-7.450)
[2017-07-13] MEDS: NOREPINEPHRINE 8 MG/250ML KIT 250 ML IV SCH (09:11)
[2017-07-13] MEDS: ENOXAPARIN SOD 40 MG/0.4 ML SYRINGE SC SCH (09:34)
[2017-07-13] MEDS: FLUCONAZOLE 200MG/100ML 100 ML IV SCH (09:34)
[2017-07-13] MEDS: FAMOTIDINE (10MG/ML) 2ML VL IV SCH (09:34)
[2017-07-13] MEDS ORDERED: BISACODYL 10 MG RECT SUPP PR ONE (14:00)
[2017-07-13] MEDS ORDERED: IOHEXOL 350 MG/ML 100ML IJ ONE (16:16)
[2017-07-13] MEDS: HYDROmorphone HCL 2 MG/ML VL IV PRN (18:15)
[2017-07-13] MEDS: TPN PER PHARMACY IV NR ×10 (20:28)
[2017-07-13] MEDS: ENOXAPARIN SOD 100 MG/1 ML SYRINGE SC SCH (22:04)
[2017-07-14] VITALS (97 sets, daily range): BP systolic 92–169; BP diastolic 37–89
[2017-07-14] MEDS: ALBUTEROL SULF 2.5 MG/0.5ML(0.5%) NEB SOLN NEB SCH ×4 (00:08→18:22)
[2017-07-14] MEDS: IPRATROPIUM BROM 0.5 MG/2.5ML INH SOL NEB SCH ×4 (00:08→18:22)
[2017-07-14] MEDS: NOREPINEPHRINE 8 MG/250ML KIT 250 ML IV SCH (01:45)
[2017-07-14 03:52] LABS: Basophils # (auto) 0 uL; Basophils % (auto) 0.3 % (0.0-2.0); Eosinophils # (auto) 0.3 uL; Eosinophils % (auto) 4.7 % (0.0-7.0); Hematocrit 32.8 % (36.0-46.0); Lymphocytes # (auto) 1.4 uL; Lymphocytes % (auto) 19.4 % (10.0-50.0); Mean Corpuscular Hemoglobin 32.9 pg (28.0-32.0); Mean Corpuscular Hgb Conc. 33.4 g/dL (32.0-36.0); Mean Corpuscular Volume 98.3 fL (80.0-100.0); Mean Platelet Volume 8.8 fL (6.9-10.8); Monocytes # (auto) 1.3 uL; Monocytes % (auto) 17.6 % (0.0-12.0); Neutrophils # (auto) 4.3 uL; Platelet Count (auto) 204 10^3/uL (140-450); Red Cell Distribution Width 14.3 % (11.8-14.3); White Blood Cell 7.4 10^3/uL (4.4-10.8)
[2017-07-14 04:10] LABS: BUN/Creatinine Ratio 30.8; Bilirubin, Total 0.8 mg/dL (0.2-1.0); Calcium 8.7 mg/dL (8.5-10.1); Magnesium 2.4 mg/dL (1.6-2.6); Phosphorus 3.5 mg/dL (2.5-4.90); Total Protein 6.1 g/dL (6.4-8.2)
[2017-07-14] MEDS: VANCOMYCIN 1,250 MG in D5W 5% 250 ML IV SCH (04:48)
[2017-07-14] MEDS: METOCLOPRAMIDE HCL 5MG/ml INJ 2ml VIAL IV SCH ×3 (05:50→22:15)
[2017-07-14] MEDS: InsuLIN REG 1unit/0.01ml Soln (100units/ml) SC SCH ×3 (05:51→17:59)
[2017-07-14] MEDS: ACCU-CHEK COMFORT CURVE STRIP VI SCH ×3 (05:51→17:59)
[2017-07-14] MEDS: PIPERACILLIN-TAZOB 3.375GM 100 ML IV SCH ×4 (05:51→23:56)
[2017-07-14] MEDS: ALBUMIN 25% 50 ML IV SCH ×2 (05:51→13:35)
[2017-07-14 07:21] LABS: Allen Test Yes; Blood 02Sat 95.5 % (96-100); Blood MetHb 0.2 % (0.0-1.5); HCO3 28.4 mmol/L (22-26.0); HHb 4.4 % (0.0-5.0); MODE VENT - A/C; O2Hb 94.4 % (94.0-97.0); PCO2 46.5 mmHg (35.0-45.0); PCO2(T) 46.5 mmHg (35.0-45.0); PO2 84.2 mmHg (80.0-100.0); PO2(T) 84.2 mmHg (80.0-100.0); Sample Type Arterial; pH 7.403 (7.350-7.450)
[2017-07-14] MEDS: ENOXAPARIN SOD 100 MG/1 ML SYRINGE SC SCH ×2 (09:42→22:15)
[2017-07-14] MEDS: FLUCONAZOLE 200MG/100ML 100 ML IV SCH (09:42)
[2017-07-14] MEDS: FAMOTIDINE (10MG/ML) 2ML VL IV SCH (09:42)
[2017-07-14] MEDS: MIDAZOLAM DRIP 50 mg/50mL 50 ML IV SCH (10:51)
[2017-07-14 12:13] LABS: Albumin 3.1 g/dL (3.4-5.0); BUN/Creatinine Ratio 32.6; Bilirubin, Total 0.8 mg/dL (0.2-1.0); Calcium 8.7 mg/dL (8.5-10.1); Magnesium 2.5 mg/dL (1.6-2.6); Phosphorus 2.7 mg/dL (2.5-4.90); Potassium 4.1 mmol/L (3.5-5.1); Total Protein 6.1 g/dL (6.4-8.2)
[2017-07-14] MEDS ORDERED: Fibersource Hn 1 Liter GT SCH (14:30)
[2017-07-14] MEDS ORDERED: LIDOCAINE 1% HCL (LOCAL ANESTH.) INJ 20ML MDV ID ONE (15:45)
[2017-07-14] MEDS: VANCOMYCIN 1GM/250ML 250 ML IV SCH (16:00)
[2017-07-14] MEDS ORDERED: TPN PER PHARMACY IV NR ×10 (20:00)
[2017-07-14] MEDS: TPN PER PHARMACY IV NR ×10 (20:19)
[2017-07-15] VITALS (105 sets, daily range): BP systolic 68–155; BP diastolic 25–82
[2017-07-15] MEDS: InsuLIN REG 1unit/0.01ml Soln (100units/ml) SC SCH ×3 (00:25→12:00)
[2017-07-15] MEDS: ACCU-CHEK COMFORT CURVE STRIP VI SCH ×3 (00:25→12:00)
[2017-07-15] MEDS: VANCOMYCIN 1GM/250ML 250 ML IV SCH ×2 (04:23→15:50)
[2017-07-15] MEDS: METOCLOPRAMIDE HCL 5MG/ml INJ 2ml VIAL IV SCH ×3 (05:58→22:34)
[2017-07-15] MEDS: PIPERACILLIN-TAZOB 3.375GM 100 ML IV SCH ×3 (05:58→17:57)
[2017-07-15] MEDS: ALBUTEROL SULF 2.5 MG/0.5ML(0.5%) NEB SOLN NEB SCH ×3 (06:17→18:32)
[2017-07-15] MEDS: IPRATROPIUM BROM 0.5 MG/2.5ML INH SOL NEB SCH ×3 (06:17→18:32)
[2017-07-15 07:44] LABS: Base Excess 3.6 mmol/L (-2.0-2.0); Blood 02Sat 95.1 % (96-100); Blood COHb 0.1 % (0.5-1.5); Blood MetHb 0.3 % (0.0-1.5); HCO3 28.2 mmol/L (22-26.0); HHb 4.9 % (0.0-5.0); MODE VENT - A/C; O2Hb 94.7 % (94.0-97.0); PCO2 42.8 mmHg (35.0-45.0); PCO2(T) 42.8 mmHg (35.0-45.0); PO2 80.3 mmHg (80.0-100.0); PO2(T) 80.3 mmHg (80.0-100.0); Sample Type Arterial; pH 7.437 (7.350-7.450)
[2017-07-15 08:43] LABS: Albumin 2.9 g/dL (3.4-5.0); BUN/Creatinine Ratio 28.1; Bilirubin, Total 0.7 mg/dL (0.2-1.0); Calcium 8.7 mg/dL (8.5-10.1); Magnesium 2.3 mg/dL (1.6-2.6); Potassium 3.9 mmol/L (3.5-5.1)
[2017-07-15] MEDS: NOREPINEPHRINE 8 MG/250ML KIT 250 ML IV SCH ×2 (09:11→20:06)
[2017-07-15] MEDS: MIDAZOLAM DRIP 50 mg/50mL 50 ML IV SCH ×2 (09:11→15:50)
[2017-07-15] MEDS: FAMOTIDINE (10MG/ML) 2ML VL IV SCH (10:05)
[2017-07-15] MEDS: FLUCONAZOLE 200MG/100ML 100 ML IV SCH (10:05)
[2017-07-15] MEDS: ENOXAPARIN SOD 100 MG/1 ML SYRINGE SC SCH ×2 (10:06→22:35)
[2017-07-15] MEDS ORDERED: Fibersource Hn 1 Liter GT SCH (11:00)
[2017-07-15] MEDS ORDERED: TPN PER PHARMACY IV NR ×11 (20:00)
[2017-07-15] MEDS ORDERED: NOREPINEPHRINE 8 MG/250ML KIT 250 ML IV ONE (20:09)
[2017-07-16] VITALS (98 sets, daily range): BP systolic 79–147; BP diastolic 29–92
[2017-07-16] MEDS: IPRATROPIUM BROM 0.5 MG/2.5ML INH SOL NEB SCH ×4 (00:07→18:18)
[2017-07-16] MEDS: ALBUTEROL SULF 2.5 MG/0.5ML(0.5%) NEB SOLN NEB SCH ×4 (00:07→18:18)
[2017-07-16] MEDS: PIPERACILLIN-TAZOB 3.375GM 100 ML IV SCH ×4 (00:14→17:47)
[2017-07-16] MEDS: VANCOMYCIN 1GM/250ML 250 ML IV SCH (04:00)
[2017-07-16 04:20] LABS: Basophils # (auto) 0 uL; Basophils % (auto) 0.6 % (0.0-2.0); Eosinophils # (auto) 0.4 uL; Eosinophils % (auto) 6.1 % (0.0-7.0); Hematocrit 33.6 % (36.0-46.0); Hemoglobin 11.3 g/dL (12.2-16.2); Lymphocytes # (auto) 1.4 uL; Lymphocytes % (auto) 23.7 % (10.0-50.0); Mean Corpuscular Hemoglobin 32.9 pg (28.0-32.0); Mean Corpuscular Hgb Conc. 33.5 g/dL (32.0-36.0); Mean Corpuscular Volume 98.2 fL (80.0-100.0); Mean Platelet Volume 8.6 fL (6.9-10.8); Monocytes % (auto) 17.6 % (0.0-12.0); Platelet Count (auto) 257 10^3/uL (140-450); Red Cell Distribution Width 14.4 % (11.8-14.3); White Blood Cell 5.9 10^3/uL (4.4-10.8)
[2017-07-16 04:31] LABS: BUN/Creatinine Ratio 21.7; Calcium 8.6 mg/dL (8.5-10.1); Magnesium 2.5 mg/dL (1.6-2.6); Phosphorus 2.5 mg/dL (2.5-4.90); Potassium 3.9 mmol/L (3.5-5.1)
[2017-07-16 08:11] LABS: Allen Test Modified; Base Excess 2.2 mmol/L (-2.0-2.0); Blood 02Sat 94.5 % (96-100); Blood COHb 0.8 % (0.5-1.5); HCO3 26.5 mmol/L (22-26.0); HHb 5.5 % (0.0-5.0); MODE VENT - A/C; O2Hb 93.7 % (94.0-97.0); PCO2 40.4 mmHg (35.0-45.0); PCO2(T) 40.4 mmHg (35.0-45.0); PO2 76.1 mmHg (80.0-100.0); PO2(T) 76.1 mmHg (80.0-100.0); Sample Type Arterial; pH 7.435 (7.350-7.450)
[2017-07-16] MEDS: METOCLOPRAMIDE HCL 5MG/ml INJ 2ml VIAL IV SCH ×3 (08:46→22:00)
[2017-07-16] MEDS: FAMOTIDINE (10MG/ML) 2ML VL IV SCH (09:59)
[2017-07-16] MEDS: FLUCONAZOLE 200MG/100ML 100 ML IV SCH (09:59)
[2017-07-16] MEDS: ENOXAPARIN SOD 100 MG/1 ML SYRINGE SC SCH ×2 (09:59→22:00)
[2017-07-16] MEDS: SODIUM CHLORIDE 0.9% 1,000 ML IV SCH (13:04)
[2017-07-16] MEDS: MIDAZOLAM DRIP 50 mg/50mL 50 ML IV SCH (14:30)
[2017-07-16] MEDS: VANCOMYCIN 750 MG in SODIUM CHL 0.9% 250 ML IV SCH (18:00)
[2017-07-16] MEDS: NOREPINEPHRINE 8 MG/250ML KIT 250 ML IV SCH (20:06)
[2017-07-17] VITALS (93 sets, daily range): BP systolic 82–157; BP diastolic 17–112
[2017-07-17] MEDS: IPRATROPIUM BROM 0.5 MG/2.5ML INH SOL NEB SCH ×4 (00:14→17:14)
[2017-07-17] MEDS: ALBUTEROL SULF 2.5 MG/0.5ML(0.5%) NEB SOLN NEB SCH ×4 (00:14→17:14)
[2017-07-17 04:56] LABS: Hematocrit 32.6 % (36.0-46.0); Mean Corpuscular Hemoglobin 33.2 pg (28.0-32.0); Mean Corpuscular Hgb Conc. 33.8 g/dL (32.0-36.0); Mean Corpuscular Volume 98.4 fL (80.0-100.0); Mean Platelet Volume 8.8 fL (6.9-10.8); Platelet Count (auto) 282 10^3/uL (140-450); Red Cell Distribution Width 14.5 % (11.8-14.3); White Blood Cell 4.5 10^3/uL (4.4-10.8)
[2017-07-17 04:58] LABS: Metamyelocytes % 0; Myelocytes % 0; Promyelocytes % 0; Reactive Lymphocytes 0
[2017-07-17 05:19] LABS: Calcium 8.2 mg/dL (8.5-10.1); Potassium 4.4 mmol/L (3.5-5.1)
[2017-07-17] MEDS: SODIUM CHLORIDE 0.9% 1,000 ML IV SCH ×2 (05:25→22:05)
[2017-07-17] MEDS: METOCLOPRAMIDE HCL 5MG/ml INJ 2ml VIAL IV SCH ×3 (06:00→22:00)
[2017-07-17] MEDS: PIPERACILLIN-TAZOB 3.375GM 100 ML IV SCH ×4 (06:00→18:20)
[2017-07-17] MEDS: VANCOMYCIN 750 MG in SODIUM CHL 0.9% 250 ML IV SCH ×2 (06:00→18:20)
[2017-07-17 06:31] LABS: Large Platelets FEW; Platelet Estimate Adequate
[2017-07-17 07:48] LABS: Allen Test Yes; Base Excess -0.6 mmol/L (-2.0-2.0); Blood 02Sat 96.7 % (96-100); Blood COHb 0.6 % (0.5-1.5); Blood MetHb 0.1 % (0.0-1.5); HHb 3.3 % (0.0-5.0); MODE VENT - A/C; PCO2 34.7 mmHg (35.0-45.0); PCO2(T) 34.7 mmHg (35.0-45.0); PO2 96.8 mmHg (80.0-100.0); PO2(T) 96.8 mmHg (80.0-100.0); Sample Type Arterial
[2017-07-17] MEDS: FAMOTIDINE (10MG/ML) 2ML VL IV SCH (10:16)
[2017-07-17] MEDS: ENOXAPARIN SOD 100 MG/1 ML SYRINGE SC SCH ×2 (10:16→22:00)
[2017-07-17] MEDS: FLUCONAZOLE 200MG/100ML 100 ML IV SCH (10:16)
[2017-07-17] MEDS: NOREPINEPHRINE 8 MG/250ML KIT 250 ML IV SCH (20:06)
[2017-07-18] VITALS (63 sets, daily range): BP systolic 86–193; BP diastolic 45–101
[2017-07-18] MEDS: IPRATROPIUM BROM 0.5 MG/2.5ML INH SOL NEB SCH ×4 (00:24→19:04)
[2017-07-18] MEDS: ALBUTEROL SULF 2.5 MG/0.5ML(0.5%) NEB SOLN NEB SCH ×4 (00:24→19:04)
[2017-07-18 05:37] LABS: Basophils # (auto) 0 uL; Basophils % (auto) 0.9 % (0.0-2.0); Eosinophils # (auto) 0.3 uL; Eosinophils % (auto) 6.6 % (0.0-7.0); Hematocrit 33.8 % (36.0-46.0); Hemoglobin 11.1 g/dL (12.2-16.2); Lymphocytes # (auto) 1.2 uL; Lymphocytes % (auto) 27.4 % (10.0-50.0); Mean Corpuscular Hemoglobin 32.4 pg (28.0-32.0); Mean Corpuscular Volume 98.2 fL (80.0-100.0); Mean Platelet Volume 8.2 fL (6.9-10.8); Monocytes # (auto) 0.6 uL; Monocytes % (auto) 12.6 % (0.0-12.0); Neutrophils # (auto) 2.4 uL; Neutrophils % (auto) 52.5 % (37.0-80.0); Nucleated Red Blood Cells % 0.1 %; Platelet Count (auto) 286 10^3/uL (140-450); Red Cell Distribution Width 14.6 % (11.8-14.3); White Blood Cell 4.5 10^3/uL (4.4-10.8)
[2017-07-18 05:43] LABS: BUN/Creatinine Ratio 19.6; Calcium 8.2 mg/dL (8.5-10.1)
[2017-07-18] MEDS: METOCLOPRAMIDE HCL 5MG/ml INJ 2ml VIAL IV SCH ×3 (06:00→21:36)
[2017-07-18] MEDS: PIPERACILLIN-TAZOB 3.375GM 100 ML IV SCH ×4 (06:05→17:45)
[2017-07-18] MEDS: VANCOMYCIN 750 MG in SODIUM CHL 0.9% 250 ML IV SCH (06:05)
[2017-07-18 07:52] LABS: Allen Test Modified; Base Excess -2.8 mmol/L (-2.0-2.0); Blood 02Sat 94.5 % (96-100); Blood COHb 0.7 % (0.5-1.5); Blood MetHb 0.2 % (0.0-1.5); HCO3 20.6 mmol/L (22-26.0); HHb 5.5 % (0.0-5.0); MODE VENT - A/C; O2Hb 93.6 % (94.0-97.0); PCO2 31.3 mmHg (35.0-45.0); PCO2(T) 31.3 mmHg (35.0-45.0); PO2 77.7 mmHg (80.0-100.0); PO2(T) 77.7 mmHg (80.0-100.0); Sample Type Arterial; pH 7.436 (7.350-7.450)
[2017-07-18] MEDS: MIDAZOLAM DRIP 50 mg/50mL 50 ML IV SCH (09:11)
[2017-07-18] MEDS: FLUCONAZOLE 200MG/100ML 100 ML IV SCH (10:21)
[2017-07-18] MEDS: FAMOTIDINE (10MG/ML) 2ML VL IV SCH (10:21)
[2017-07-18] MEDS: ENOXAPARIN SOD 100 MG/1 ML SYRINGE SC SCH ×2 (10:21→21:36)
[2017-07-18 11:23] LABS: Allen Test Modified; Base Excess -2.6 mmol/L (-2.0-2.0); Blood 02Sat 95.8 % (96-100); Blood COHb 0.5 % (0.5-1.5); Blood MetHb 0.3 % (0.0-1.5); HCO3 23.3 mmol/L (22-26.0); HHb 4.2 % (0.0-5.0); MODE VENT - CPAP; PCO2 43.8 mmHg (35.0-45.0); PCO2(T) 43.8 mmHg (35.0-45.0); PO2 89.6 mmHg (80.0-100.0); PO2(T) 89.6 mmHg (80.0-100.0); Pressure Support 8; Sample Type Arterial; pH 7.343 (7.350-7.450)
[2017-07-18] MEDS ORDERED: POTASSIUM CHL 10% (20 MEQ/15ML) 15ml ORAL SOLN GT ONE (12:15)
[2017-07-18] MEDS ORDERED: FUROSEMIDE 40 MG/4 ML VIAL IV ONE (12:15)
[2017-07-18] MEDS ORDERED: METOPROLOL TARTRATE 25 MG TAB PO ONE (12:15)
[2017-07-18] MEDS: SODIUM CHLORIDE 0.9% 1,000 ML IV SCH (14:45)
[2017-07-18] MEDS: NOREPINEPHRINE 8 MG/250ML KIT 250 ML IV SCH (20:06)
[2017-07-18] MEDS: METOPROLOL TARTRATE 25 MG TAB PO SCH (21:36)
[2017-07-19] VITALS (82 sets, daily range): BP systolic 73–195; BP diastolic 39–110
[2017-07-19] MEDS: PIPERACILLIN-TAZOB 3.375GM 100 ML IV SCH ×5 (00:01→23:49)
[2017-07-19] MEDS: ALBUTEROL SULF 2.5 MG/0.5ML(0.5%) NEB SOLN NEB SCH ×4 (00:21→17:50)
[2017-07-19] MEDS: IPRATROPIUM BROM 0.5 MG/2.5ML INH SOL NEB SCH ×4 (00:21→17:50)
[2017-07-19 04:20] LABS: Albumin 2.2 g/dL (3.4-5.0); BUN/Creatinine Ratio 16.3; Calcium 8.1 mg/dL (8.5-10.1); Potassium 3.4 mmol/L (3.5-5.1)
[2017-07-19 04:22] LABS: Bilirubin, Total 0.5 mg/dL (0.2-1.0); Total Protein 5.4 g/dL (6.4-8.2)
[2017-07-19] MEDS: METOCLOPRAMIDE HCL 5MG/ml INJ 2ml VIAL IV SCH (05:59)
[2017-07-19] MEDS: MIDAZOLAM DRIP 50 mg/50mL 50 ML IV SCH ×2 (09:11→19:00)
[2017-07-19 09:41] LABS: Allen Test Modified; Base Excess 1.6 mmol/L (-2.0-2.0); Blood 02Sat 91.7 % (96-100); Blood COHb 0.7 % (0.5-1.5); Blood MetHb 0.1 % (0.0-1.5); HCO3 25.9 mmol/L (22-26.0); HHb 8.2 % (0.0-5.0); MODE VENT - CPAP; PCO2 39.4 mmHg (35.0-45.0); PCO2(T) 39.4 mmHg (35.0-45.0); Pressure Support 8; Sample Type Arterial; Spont Vt 455; pH 7.435 (7.350-7.450)
[2017-07-19] MEDS: SODIUM CHLORIDE 0.9% 1,000 ML IV SCH (09:47)
[2017-07-19] MEDS: FLUCONAZOLE 200MG/100ML 100 ML IV SCH (09:47)
[2017-07-19] MEDS: POTASSIUM CHL 10% (20 MEQ/15ML) 15ml ORAL SOLN GT SCH (09:47)
[2017-07-19] MEDS: METOPROLOL TARTRATE 25 MG TAB PO SCH ×2 (09:48→21:23)
[2017-07-19] MEDS: ENOXAPARIN SOD 100 MG/1 ML SYRINGE SC SCH ×2 (09:48→21:23)
[2017-07-19] MEDS: FAMOTIDINE (10MG/ML) 2ML VL IV SCH (09:48)
[2017-07-19] MEDS: FUROSEMIDE 40 MG/4 ML VIAL IV SCH (09:48)
[2017-07-19] MEDS ORDERED: POTASSIUM CHL 10% (20 MEQ/15ML) 15ml ORAL SOLN GT ONE (13:15)
[2017-07-19] MEDS ORDERED: VITAMINS A & D (TOPICAL) OINT 5GM TOP ONE (15:24)
[2017-07-19] MEDS ORDERED: ETOMIDATE (2MG/ML) 20ML VIAL IV ONE (18:05)
[2017-07-19] MEDS ORDERED: SUCCINYLCHOLINE CHLORIDE 20 MG/ML 10ML VIAL IV ONE (18:05)
[2017-07-19] MEDS ORDERED: MIDAZOLAM DRIP 50 mg/50mL 50 ML IV ONE (18:14)
[2017-07-19] MEDS ORDERED: LABETALOL HCL 5 MG/ML ML 20ML VIAL IV ONE ×2 (18:16→18:30)
[2017-07-19] MEDS: NOREPINEPHRINE 8 MG/250ML KIT 250 ML IV SCH ×2 (19:33→21:38)
[2017-07-19] MEDS ORDERED: NOREPINEPHRINE 8 MG/250ML KIT 250 ML IV ONE (19:38)
[2017-07-19] MEDS ORDERED: FUROSEMIDE 40 MG/4 ML VIAL ONE (19:42)
[2017-07-19] MEDS ORDERED: FUROSEMIDE 40 MG/4 ML VIAL IV ONE (19:45)
[2017-07-19 20:30] LABS: Allen Test Yes; Base Excess 1.3 mmol/L (-2.0-2.0); Blood 02Sat 99.3 % (96-100); Blood COHb 1.2 % (0.5-1.5); Blood MetHb 0.2 % (0.0-1.5); HCO3 27.9 mmol/L (22-26.0); HHb 0.7 % (0.0-5.0); MODE VENT - A/C; O2Hb 97.9 % (94.0-97.0); PCO2 52.2 mmHg (35.0-45.0); PCO2(T) 52.2 mmHg (35.0-45.0); PO2 269.2 mmHg (80.0-100.0); PO2(T) 269.2 mmHg (80.0-100.0); Sample Type Arterial; pH 7.346 (7.350-7.450)
[2017-07-20] VITALS (106 sets, daily range): BP systolic 84–141; BP diastolic 33–94
[2017-07-20] MEDS: ALBUTEROL SULF 2.5 MG/0.5ML(0.5%) NEB SOLN NEB SCH ×5 (00:04→23:39)
[2017-07-20] MEDS: IPRATROPIUM BROM 0.5 MG/2.5ML INH SOL NEB SCH ×5 (00:04→23:39)
[2017-07-20 00:37] LABS: Base Excess 3.1 mmol/L (-2.0-2.0); Blood COHb 0.6 % (0.5-1.5); Blood MetHb 0.1 % (0.0-1.5); HCO3 26.8 mmol/L (22-26.0); MODE VENT - A/C; O2Hb 93.3 % (94.0-97.0); PO2 71.1 mmHg (80.0-100.0); PO2(T) 71.1 mmHg (80.0-100.0); Sample Type Arterial; pH 7.467 (7.350-7.450)
[2017-07-20] MEDS: MIDAZOLAM DRIP 50 mg/50mL 50 ML IV SCH ×2 (03:00→09:41)
[2017-07-20 04:28] LABS: Basophils # (auto) 0.1 uL; Basophils % (auto) 0.6 % (0.0-2.0); Eosinophils # (auto) 0.2 uL; Eosinophils % (auto) 2.9 % (0.0-7.0); Hematocrit 34.9 % (36.0-46.0); Hemoglobin 11.8 g/dL (12.2-16.2); Lymphocytes # (auto) 1.6 uL; Lymphocytes % (auto) 20.2 % (10.0-50.0); Mean Corpuscular Hemoglobin 32.9 pg (28.0-32.0); Mean Corpuscular Hgb Conc. 33.8 g/dL (32.0-36.0); Mean Corpuscular Volume 97.3 fL (80.0-100.0); Mean Platelet Volume 8.1 fL (6.9-10.8); Monocytes # (auto) 0.9 uL; Monocytes % (auto) 10.8 % (0.0-12.0); Neutrophils # (auto) 5.3 uL; Neutrophils % (auto) 65.5 % (37.0-80.0); Platelet Count (auto) 319 10^3/uL (140-450); Red Cell Distribution Width 14.4 % (11.8-14.3)
[2017-07-20 04:45] LABS: Albumin 2.5 g/dL (3.4-5.0); Calcium 8.7 mg/dL (8.5-10.1)
[2017-07-20] MEDS: HYDROmorphone HCL 2 MG/ML VL IV PRN ×3 (04:45→21:25)
[2017-07-20 05:01] LABS: Bilirubin, Total 0.5 mg/dL (0.2-1.0); Potassium 3.3 mmol/L (3.5-5.1); Total Protein 6.2 g/dL (6.4-8.2)
[2017-07-20] MEDS: PIPERACILLIN-TAZOB 3.375GM 100 ML IV SCH ×3 (06:00→17:27)
[2017-07-20 09:35] LABS: Allen Test Yes; Base Excess -1.9 mmol/L (-2.0-2.0); Blood 02Sat 94.4 % (96-100); Blood COHb 0.6 % (0.5-1.5); Blood MetHb 0.2 % (0.0-1.5); HCO3 20.2 mmol/L (22-26.0); HHb 5.6 % (0.0-5.0); MODE VENT - A/C; O2Hb 93.6 % (94.0-97.0); PCO2 26.6 mmHg (35.0-45.0); PCO2(T) 26.6 mmHg (35.0-45.0); PIP 23; PO2 71.2 mmHg (80.0-100.0); PO2(T) 71.2 mmHg (80.0-100.0); Sample Type Arterial; Spont Vt 551; pH 7.498 (7.350-7.450)
[2017-07-20] MEDS: NOREPINEPHRINE 8 MG/250ML KIT 250 ML IV SCH (09:41)
[2017-07-20] MEDS: FAMOTIDINE (10MG/ML) 2ML VL IV SCH (09:42)
[2017-07-20] MEDS: ENOXAPARIN SOD 100 MG/1 ML SYRINGE SC SCH ×2 (09:42→21:25)
[2017-07-20] MEDS: METOPROLOL TARTRATE 25 MG TAB PO SCH (09:42)
[2017-07-20] MEDS: POTASSIUM CHL 10% (20 MEQ/15ML) 15ml ORAL SOLN GT SCH (09:42)
[2017-07-20] MEDS: FLUCONAZOLE 200MG/100ML 100 ML IV SCH (09:42)
[2017-07-20] MEDS: FUROSEMIDE 40 MG/4 ML VIAL IV SCH (09:42)
[2017-07-20] MEDS ORDERED: POTASSIUM CHL 10% (20 MEQ/15ML) 15ml ORAL SOLN GT ONE (12:30)
[2017-07-21] VITALS (105 sets, daily range): BP systolic 80–152; BP diastolic 37–81
[2017-07-21] MEDS: MIDAZOLAM DRIP 50 mg/50mL 50 ML IV SCH ×3 (01:07→20:13)
[2017-07-21 04:05] LABS: Basophils # (auto) 0 uL; Basophils % (auto) 0.7 % (0.0-2.0); Eosinophils # (auto) 0.3 uL; Eosinophils % (auto) 5.2 % (0.0-7.0); Hematocrit 32.1 % (36.0-46.0); Hemoglobin 10.8 g/dL (12.2-16.2); Mean Corpuscular Hemoglobin 32.8 pg (28.0-32.0); Mean Corpuscular Hgb Conc. 33.7 g/dL (32.0-36.0); Mean Corpuscular Volume 97.3 fL (80.0-100.0); Mean Platelet Volume 8.4 fL (6.9-10.8); Monocytes # (auto) 0.8 uL; Monocytes % (auto) 11.9 % (0.0-12.0); Neutrophils # (auto) 3.3 uL; Neutrophils % (auto) 51.2 % (37.0-80.0); Nucleated Red Blood Cells % 0.1 %; Platelet Count (auto) 266 10^3/uL (140-450); White Blood Cell 6.4 10^3/uL (4.4-10.8)
[2017-07-21] MEDS: PIPERACILLIN-TAZOB 3.375GM 100 ML IV SCH ×4 (06:02→17:43)
[2017-07-21 07:19] LABS: BUN/Creatinine Ratio 18.4; Calcium 8.9 mg/dL (8.5-10.1); Potassium 3.4 mmol/L (3.5-5.1)
[2017-07-21] MEDS: ALBUTEROL SULF 2.5 MG/0.5ML(0.5%) NEB SOLN NEB SCH ×3 (07:30→19:14)
[2017-07-21] MEDS: IPRATROPIUM BROM 0.5 MG/2.5ML INH SOL NEB SCH ×3 (07:30→19:14)
[2017-07-21 08:13] LABS: Allen Test Modified; Base Excess 3.9 mmol/L (-2.0-2.0); Blood 02Sat 95.4 % (96-100); Blood COHb 0.7 % (0.5-1.5); Blood MetHb 0.1 % (0.0-1.5); HCO3 26.9 mmol/L (22-26.0); HHb 4.6 % (0.0-5.0); MODE VENT - A/C; O2Hb 94.6 % (94.0-97.0); PO2 78.3 mmHg (80.0-100.0); PO2(T) 78.3 mmHg (80.0-100.0); Sample Type Arterial; pH 7.504 (7.350-7.450)
[2017-07-21] MEDS: FLUCONAZOLE 200MG/100ML 100 ML IV SCH (09:36)
[2017-07-21] MEDS: POTASSIUM CHL 10% (20 MEQ/15ML) 15ml ORAL SOLN GT SCH (09:36)
[2017-07-21] MEDS: FAMOTIDINE (10MG/ML) 2ML VL IV SCH (09:36)
[2017-07-21] MEDS: ENOXAPARIN SOD 100 MG/1 ML SYRINGE SC SCH ×2 (09:37→22:00)
[2017-07-21] MEDS: FUROSEMIDE 40 MG/4 ML VIAL IV SCH (09:56)
[2017-07-21] MEDS ORDERED: POTASSIUM CHL 10% (20 MEQ/15ML) 15ml ORAL SOLN GT ONE (13:30)
[2017-07-21] MEDS ORDERED: DIGOXIN (250MCG/ML) 2 ML AMPULE IV ONE (13:30)
[2017-07-21] MEDS: NOREPINEPHRINE 8 MG/250ML KIT 250 ML IV SCH (19:33)
[2017-07-21] MEDS: HYDROmorphone HCL 2 MG/ML VL IV PRN (21:25)
[2017-07-22] VITALS (100 sets, daily range): BP systolic 84–156; BP diastolic 45–85
[2017-07-22] MEDS: ALBUTEROL SULF 2.5 MG/0.5ML(0.5%) NEB SOLN NEB SCH ×4 (00:15→18:33)
[2017-07-22] MEDS: IPRATROPIUM BROM 0.5 MG/2.5ML INH SOL NEB SCH ×4 (00:15→18:33)
[2017-07-22 04:11] LABS: Basophils # (auto) 0 uL; Basophils % (auto) 0.6 % (0.0-2.0); Eosinophils # (auto) 0.5 uL; Hematocrit 31.5 % (36.0-46.0); Hemoglobin 10.5 g/dL (12.2-16.2); Lymphocytes # (auto) 1.7 uL; Lymphocytes % (auto) 35.2 % (10.0-50.0); Mean Corpuscular Hgb Conc. 33.4 g/dL (32.0-36.0); Mean Corpuscular Volume 98.6 fL (80.0-100.0); Mean Platelet Volume 8.7 fL (6.9-10.8); Monocytes # (auto) 0.6 uL; Neutrophils # (auto) 2.1 uL; Neutrophils % (auto) 42.2 % (37.0-80.0); Nucleated Red Blood Cells % 0.1 %; Platelet Count (auto) 223 10^3/uL (140-450); Red Cell Distribution Width 14.9 % (11.8-14.3); White Blood Cell 4.9 10^3/uL (4.4-10.8)
[2017-07-22 04:30] LABS: Albumin 2.5 g/dL (3.4-5.0); BUN/Creatinine Ratio 19.4; Bilirubin, Total 0.5 mg/dL (0.2-1.0); Calcium 8.8 mg/dL (8.5-10.1); Potassium 3.5 mmol/L (3.5-5.1); Total Protein 6.2 g/dL (6.4-8.2)
[2017-07-22] MEDS: PIPERACILLIN-TAZOB 3.375GM 100 ML IV SCH ×4 (06:00→18:12)
[2017-07-22] MEDS: ENOXAPARIN SOD 100 MG/1 ML SYRINGE SC SCH ×2 (10:10→22:00)
[2017-07-22] MEDS: FUROSEMIDE 40 MG/4 ML VIAL IV SCH (10:11)
[2017-07-22] MEDS: FAMOTIDINE (10MG/ML) 2ML VL IV SCH (10:11)
[2017-07-22] MEDS: POTASSIUM CHL 10% (20 MEQ/15ML) 15ml ORAL SOLN GT SCH (10:11)
[2017-07-22] MEDS: DIGOXIN (250MCG/ML) 2 ML AMPULE IV SCH (10:13)
[2017-07-22] MEDS: FLUCONAZOLE 200MG/100ML 100 ML IV SCH (10:30)
[2017-07-22 10:54] LABS: Allen Test Yes; Base Excess 3.8 mmol/L (-2.0-2.0); Blood 02Sat 95.7 % (96-100); Blood COHb 0.8 % (0.5-1.5); Blood MetHb 0.2 % (0.0-1.5); HCO3 27.2 mmol/L (22-26.0); HHb 4.3 % (0.0-5.0); MODE VENT - A/C; O2Hb 94.7 % (94.0-97.0); PCO2 36.8 mmHg (35.0-45.0); PCO2(T) 36.8 mmHg (35.0-45.0); PIP 23; Sample Type Arterial; Spont Vt 557; pH 7.486 (7.350-7.450)
[2017-07-22] MEDS ORDERED: POTASSIUM CHL 10% (20 MEQ/15ML) 15ml ORAL SOLN GT ONE (13:30)
[2017-07-22] MEDS ORDERED: FUROSEMIDE 40 MG/4 ML VIAL IV ONE (13:30)
[2017-07-22] MEDS: MIDAZOLAM DRIP 50 mg/50mL 50 ML IV SCH (18:36)
[2017-07-22] MEDS: NOREPINEPHRINE 8 MG/250ML KIT 250 ML IV SCH (19:33)
[2017-07-23] VITALS (64 sets, daily range): BP systolic 109–156; BP diastolic 45–96
[2017-07-23] MEDS: MIDAZOLAM DRIP 50 mg/50mL 50 ML IV SCH (00:20)
[2017-07-23] MEDS: ALBUTEROL SULF 2.5 MG/0.5ML(0.5%) NEB SOLN NEB SCH ×4 (00:32→19:07)
[2017-07-23] MEDS: IPRATROPIUM BROM 0.5 MG/2.5ML INH SOL NEB SCH ×4 (00:32→19:07)
[2017-07-23 05:02] LABS: Basophils # (auto) 0 uL; Basophils % (auto) 0.8 % (0.0-2.0); Eosinophils # (auto) 0.3 uL; Eosinophils % (auto) 6.6 % (0.0-7.0); Hematocrit 33.1 % (36.0-46.0); Hemoglobin 11.2 g/dL (12.2-16.2); Lymphocytes # (auto) 1.2 uL; Lymphocytes % (auto) 29.7 % (10.0-50.0); Mean Corpuscular Hemoglobin 33.1 pg (28.0-32.0); Mean Corpuscular Volume 97.5 fL (80.0-100.0); Mean Platelet Volume 8.7 fL (6.9-10.8); Monocytes # (auto) 0.5 uL; Monocytes % (auto) 12.1 % (0.0-12.0); Neutrophils # (auto) 2.1 uL; Neutrophils % (auto) 50.8 % (37.0-80.0); Nucleated Red Blood Cells % 0.2 %; Platelet Count (auto) 213 10^3/uL (140-450); Red Cell Distribution Width 14.6 % (11.8-14.3); White Blood Cell 4.1 10^3/uL (4.4-10.8)
[2017-07-23 05:33] LABS: Albumin 2.7 g/dL (3.4-5.0); BUN/Creatinine Ratio 23.9; Bilirubin, Total 0.6 mg/dL (0.2-1.0); Potassium 3.5 mmol/L (3.5-5.1); Total Protein 6.6 g/dL (6.4-8.2)
[2017-07-23] MEDS: PIPERACILLIN-TAZOB 3.375GM 100 ML IV SCH ×5 (06:05→23:40)
[2017-07-23] MEDS: FUROSEMIDE 40 MG/4 ML VIAL IV SCH (08:30)
[2017-07-23] MEDS: DIGOXIN (250MCG/ML) 2 ML AMPULE IV SCH (08:30)
[2017-07-23] MEDS: FAMOTIDINE (10MG/ML) 2ML VL IV SCH (08:30)
[2017-07-23 10:03] LABS: Allen Test Modified; Base Excess 6.2 mmol/L (-2.0-2.0); Blood 02Sat 96.6 % (96-100); Blood COHb 0.9 % (0.5-1.5); Blood MetHb 0.2 % (0.0-1.5); HCO3 31.5 mmol/L (22-26.0); HHb 3.4 % (0.0-5.0); MODE VENT - CPAP; O2Hb 95.5 % (94.0-97.0); PCO2 48.4 mmHg (35.0-45.0); PCO2(T) 48.4 mmHg (35.0-45.0); PIP 14; PO2 96.9 mmHg (80.0-100.0); PO2(T) 96.9 mmHg (80.0-100.0); Pressure Support 8; Sample Type Arterial; Spont Vt 259; pH 7.432 (7.350-7.450)
[2017-07-23] MEDS ORDERED: POTASSIUM CHL 10% (20 MEQ/15ML) 15ml ORAL SOLN GT ONE (10:15)
[2017-07-23] MEDS ORDERED: FUROSEMIDE 40 MG/4 ML VIAL IV ONE ×2 (10:15→12:45)
[2017-07-23] MEDS: POTASSIUM CHL 10% (20 MEQ/15ML) 15ml ORAL SOLN GT SCH (10:27)
[2017-07-23] MEDS: ENOXAPARIN SOD 100 MG/1 ML SYRINGE SC SCH ×2 (10:27→22:05)
[2017-07-23] MEDS: FLUCONAZOLE 200MG/100ML 100 ML IV SCH (10:27)
[2017-07-23] MEDS ORDERED: POTASSIUM CHL 10% (20 MEQ/15ML) 15ml ORAL SOLN PO ONE (12:45)
[2017-07-23] MEDS: NOREPINEPHRINE 8 MG/250ML KIT 250 ML IV SCH (19:33)
[2017-07-24] VITALS (24 sets, daily range): BP systolic 127–190; BP diastolic 56–102
[2017-07-24] MEDS: ALBUTEROL SULF 2.5 MG/0.5ML(0.5%) NEB SOLN NEB SCH ×4 (00:16→18:54)
[2017-07-24] MEDS: IPRATROPIUM BROM 0.5 MG/2.5ML INH SOL NEB SCH ×4 (00:16→18:54)
[2017-07-24 05:34] LABS: Basophils # (auto) 0 uL; Basophils % (auto) 0.5 % (0.0-2.0); Eosinophils # (auto) 0.1 uL; Eosinophils % (auto) 1.8 % (0.0-7.0); Hematocrit 38.9 % (36.0-46.0); Hemoglobin 13.1 g/dL (12.2-16.2); Lymphocytes # (auto) 1.2 uL; Lymphocytes % (auto) 28.2 % (10.0-50.0); Mean Corpuscular Hemoglobin 32.8 pg (28.0-32.0); Mean Corpuscular Hgb Conc. 33.6 g/dL (32.0-36.0); Mean Corpuscular Volume 97.5 fL (80.0-100.0); Mean Platelet Volume 8.9 fL (6.9-10.8); Monocytes # (auto) 0.6 uL; Monocytes % (auto) 13.7 % (0.0-12.0); Neutrophils # (auto) 2.4 uL; Neutrophils % (auto) 55.8 % (37.0-80.0); Platelet Count (auto) 216 10^3/uL (140-450); Red Cell Distribution Width 14.3 % (11.8-14.3); White Blood Cell 4.4 10^3/uL (4.4-10.8)
[2017-07-24] MEDS: PIPERACILLIN-TAZOB 3.375GM 100 ML IV SCH ×3 (06:17→17:18)
[2017-07-24 06:20] LABS: BUN/Creatinine Ratio 23.1; Potassium 3.7 mmol/L (3.5-5.1)
[2017-07-24 06:21] LABS: Albumin 3.2 g/dL (3.4-5.0); Bilirubin, Total 0.8 mg/dL (0.2-1.0); Calcium 9.4 mg/dL (8.5-10.1); Total Protein 7.7 g/dL (6.4-8.2)
[2017-07-24] MEDS: DIGOXIN (250MCG/ML) 2 ML AMPULE IV SCH (10:00)
[2017-07-24] MEDS: ENOXAPARIN SOD 100 MG/1 ML SYRINGE SC SCH ×2 (10:17→22:30)
[2017-07-24] MEDS: FAMOTIDINE (10MG/ML) 2ML VL IV SCH (10:18)
[2017-07-24] MEDS: FUROSEMIDE 40 MG/4 ML VIAL IV SCH (10:29)
[2017-07-24] MEDS: FLUCONAZOLE 200MG/100ML 100 ML IV SCH (11:04)
[2017-07-24] MEDS: POTASSIUM CHL 10% (20 MEQ/15ML) 15ml ORAL SOLN GT SCH (11:10)
[2017-07-24] MEDS: LABETALOL HCL 5 MG/ML ML 20ML VIAL IV PRN ×3 (11:50→18:47)
[2017-07-24] MEDS: NOREPINEPHRINE 8 MG/250ML KIT 250 ML IV SCH (19:33)
[2017-07-24] MEDS: HYDROmorphone HCL 2 MG/ML VL IV PRN (21:50)
[2017-07-25] VITALS (15 sets, daily range): BP systolic 137–193; BP diastolic 73–97
[2017-07-25] MEDS: LABETALOL HCL 5 MG/ML ML 20ML VIAL IV PRN ×3 (00:07→06:11)
[2017-07-25] MEDS: PIPERACILLIN-TAZOB 3.375GM 100 ML IV SCH ×4 (00:08→18:13)
[2017-07-25] MEDS: IPRATROPIUM BROM 0.5 MG/2.5ML INH SOL NEB SCH ×4 (00:42→18:56)
[2017-07-25] MEDS: ALBUTEROL SULF 2.5 MG/0.5ML(0.5%) NEB SOLN NEB SCH ×4 (00:42→18:56)
[2017-07-25] MEDS ORDERED: cloNIDine HCL 0.1 MG TAB PO ONE (02:45)
[2017-07-25] MEDS: ACETAMINOPHEN 325 MG TAB PO PRN (03:35)
[2017-07-25 04:23] LABS: Basophils # (auto) 0 uL; Basophils % (auto) 0.4 % (0.0-2.0); Calcium 9.6 mg/dL (8.5-10.1); Eosinophils # (auto) 0 uL; Eosinophils % (auto) 0.1 % (0.0-7.0); Hematocrit 38.6 % (36.0-46.0); Hemoglobin 13.2 g/dL (12.2-16.2); Lymphocytes # (auto) 0.9 uL; Lymphocytes % (auto) 17.6 % (10.0-50.0); Mean Corpuscular Hemoglobin 33.9 pg (28.0-32.0); Mean Corpuscular Hgb Conc. 34.2 g/dL (32.0-36.0); Mean Corpuscular Volume 99.2 fL (80.0-100.0); Mean Platelet Volume 9.5 fL (6.9-10.8); Monocytes # (auto) 0.4 uL; Monocytes % (auto) 8.5 % (0.0-12.0); Neutrophils # (auto) 3.7 uL; Neutrophils % (auto) 73.4 % (37.0-80.0); Platelet Count (auto) 228 10^3/uL (140-450); Potassium 3.8 mmol/L (3.5-5.1); Red Cell Distribution Width 14.1 % (11.8-14.3)
[2017-07-25] MEDS: FAMOTIDINE (10MG/ML) 2ML VL IV SCH (10:02)
[2017-07-25] MEDS: FUROSEMIDE 40 MG/4 ML VIAL IV SCH (10:02)
[2017-07-25] MEDS: ENOXAPARIN SOD 100 MG/1 ML SYRINGE SC SCH (10:03)
[2017-07-25] MEDS: FLUCONAZOLE 200MG/100ML 100 ML IV SCH (10:03)
[2017-07-25] MEDS: DIGOXIN (250MCG/ML) 2 ML AMPULE IV SCH (10:03)
[2017-07-25] MEDS: POTASSIUM CHL 10% (20 MEQ/15ML) 15ml ORAL SOLN GT SCH (10:03)
[2017-07-25] MEDS ORDERED: HYDROmorphone HCL 2 MG/ML VL IV PRN (11:30)
[2017-07-25] MEDS: BOOST PLUS 8 ounce PO SCH ×2 (12:00→18:13)
[2017-07-25] MEDS: ONDANSETRON HCL 4 MG/2 ML VIAL IV PRN ×2 (13:11→22:14)
[2017-07-25] MEDS: APIXABAN 5 MG TAB PO SCH (22:14)
[2017-07-26] VITALS (7 sets, daily range): BP systolic 127–163; BP diastolic 67–90
[2017-07-26] MEDS: PIPERACILLIN-TAZOB 3.375GM 100 ML IV SCH ×5 (00:30→23:52)
[2017-07-26] MEDS: ALBUTEROL SULF 2.5 MG/0.5ML(0.5%) NEB SOLN NEB SCH ×4 (00:41→19:38)
[2017-07-26] MEDS: IPRATROPIUM BROM 0.5 MG/2.5ML INH SOL NEB SCH ×4 (00:41→19:38)
[2017-07-26] MEDS: BOOST PLUS 8 ounce PO SCH (08:00)
[2017-07-26] MEDS ORDERED: PANTOPRAZOLE 40 MG TAB PO SCH (10:00)
[2017-07-26] MEDS ORDERED: DIGOXIN 0.125 MG TAB PO SCH (10:00)
[2017-07-26] MEDS ORDERED: PPN PER PHARMACY 0 ML IV SCH (11:00)
[2017-07-26] MEDS ORDERED: POTASSIUM CHLORIDE 20 MEQ, LIDOCAINE 1% (LOCAL ANESTH.) 2 ML in SODIUM CHL 0.9% 100 ML IV ONE (11:00)
[2017-07-26] MEDS ORDERED: FLEET ENEMA(ADULT) 135 ML PR ONE (11:00)
[2017-07-26] MEDS: FUROSEMIDE 40 MG/4 ML VIAL IV SCH (11:16)
[2017-07-26] MEDS: FLUCONAZOLE 200MG/100ML 100 ML IV SCH (11:16)
[2017-07-26] MEDS: APIXABAN 5 MG TAB PO SCH ×2 (11:17→21:51)
[2017-07-26 12:09] LABS: Albumin 3.1 g/dL (3.4-5.0); BUN/Creatinine Ratio 30.5; Bilirubin, Total 0.6 mg/dL (0.2-1.0); Calcium 9.4 mg/dL (8.5-10.1); Magnesium 2.5 mg/dL (1.6-2.6); Phosphorus 2.7 mg/dL (2.5-4.90); Total Protein 7.8 g/dL (6.4-8.2)
[2017-07-26] MEDS ORDERED: PPN PER PHARMACY IV NR ×7 (20:00)
[2017-07-27] MEDS ORDERED: DEXTROSE (50%) 50ML SYRG IV SCH
[2017-07-27] MEDS: InsuLIN REG 1unit/0.01ml Soln (100units/ml) SC SCH ×5 (00:04→23:59)
[2017-07-27] MEDS: ACCU-CHEK COMFORT CURVE STRIP VI SCH ×5 (00:04→23:59)
[2017-07-27] MEDS: ALBUTEROL SULF 2.5 MG/0.5ML(0.5%) NEB SOLN NEB SCH ×2 (00:32→06:47)
[2017-07-27] MEDS: IPRATROPIUM BROM 0.5 MG/2.5ML INH SOL NEB SCH ×4 (00:32→18:47)
[2017-07-27 05:31] VITALS: BP 133/74
[2017-07-27] MEDS: PIPERACILLIN-TAZOB 3.375GM 100 ML IV SCH (05:54)
[2017-07-27 06:22] LABS: Basophils # (auto) 0 uL; Basophils % (auto) 0.3 % (0.0-2.0); Eosinophils # (auto) 0 uL; Hemoglobin 12.5 g/dL (12.2-16.2); Lymphocytes # (auto) 1.5 uL; Mean Corpuscular Hemoglobin 33.3 pg (28.0-32.0); Mean Corpuscular Hgb Conc. 33.9 g/dL (32.0-36.0); Mean Corpuscular Volume 98.3 fL (80.0-100.0); Mean Platelet Volume 9.1 fL (6.9-10.8); Monocytes # (auto) 1.2 uL; Monocytes % (auto) 15.7 % (0.0-12.0); Platelet Count (auto) 227 10^3/uL (140-450); Red Cell Distribution Width 13.9 % (11.8-14.3); White Blood Cell 7.7 10^3/uL (4.4-10.8)
[2017-07-27 06:52] LABS: Albumin 3.3 g/dL (3.4-5.0); BUN/Creatinine Ratio 36.1; Bilirubin, Total 0.6 mg/dL (0.2-1.0); Calcium 9.3 mg/dL (8.5-10.1); Potassium 3.1 mmol/L (3.5-5.1); Total Protein 7.8 g/dL (6.4-8.2)
[2017-07-27 06:55] LABS: Magnesium 2.6 mg/dL (1.6-2.6); Phosphorus 2.9 mg/dL (2.5-4.90)
[2017-07-27] MEDS ORDERED: POTASSIUM CHL 20MEQ/50ML 50 ML IV ONE (08:15)
[2017-07-27] MEDS ORDERED: TPN PER PHARMACY 0 ML IV SCH (08:30)
[2017-07-27 09:00] VITALS: BP 157/76
[2017-07-27] MEDS ORDERED: ONDANSETRON HCL 4 MG/2 ML VIAL IV PRN (10:15)
[2017-07-27] MEDS ORDERED: LEVOFLOXACIN 500MG 100 ML IV ONE (10:30)
[2017-07-27] MEDS: PANTOPRAZOLE 40 MG/10 ML VIAL IV SCH (11:00)
[2017-07-27] MEDS: APIXABAN 5 MG TAB PO SCH ×2 (11:01→21:37)
[2017-07-27] MEDS: FUROSEMIDE 40 MG/4 ML VIAL IV SCH (11:01)
[2017-07-27 13:00] VITALS: BP 138/74
[2017-07-27] MEDS: metroNIDAZOLE 500MG/100ML 100 ML IV SCH ×2 (14:25→21:37)
[2017-07-27 17:00] VITALS: BP 140/80
[2017-07-27] MEDS ORDERED: TPN PER PHARMACY IV NR ×8 (20:00)
[2017-07-27 21:18] VITALS: BP 122/89
[2017-07-28] VITALS (7 sets, daily range): BP systolic 112–148; BP diastolic 62–82
[2017-07-28 03:35] LABS: Allen Test Yes; Base Excess 9.2 mmol/L (-2.0-2.0); Blood 02Sat 96.6 % (96-100); Blood COHb 0.4 % (0.5-1.5); Blood MetHb 0.2 % (0.0-1.5); HCO3 35.3 mmol/L (22-26.0); HHb 3.4 % (0.0-5.0); MODE NASAL CANNULA; PO2 88.3 mmHg (80.0-100.0); PO2(T) 88.3 mmHg (80.0-100.0); Room 0245T; Sample Type Arterial; pH 7.433 (7.350-7.450)
[2017-07-28] MEDS: InsuLIN REG 1unit/0.01ml Soln (100units/ml) SC SCH ×3 (06:28→18:15)
[2017-07-28] MEDS: ACCU-CHEK COMFORT CURVE STRIP VI SCH ×3 (06:28→18:15)
[2017-07-28] MEDS: metroNIDAZOLE 500MG/100ML 100 ML IV SCH ×3 (06:28→20:49)
[2017-07-28] MEDS: IPRATROPIUM BROM 0.5 MG/2.5ML INH SOL NEB SCH ×3 (06:35→19:00)
[2017-07-28 07:14] LABS: BUN/Creatinine Ratio 43.1; Bilirubin, Total 0.6 mg/dL (0.2-1.0); Calcium 9.1 mg/dL (8.5-10.1); Magnesium 2.7 mg/dL (1.6-2.6); Potassium 3.4 mmol/L (3.5-5.1); Total Protein 7.6 g/dL (6.4-8.2)
[2017-07-28] MEDS ORDERED: POTASSIUM PHOSP 22MEQ(15MMOLE) in NS 100 ML IV ONE (09:00)
[2017-07-28] MEDS: APIXABAN 5 MG TAB PO SCH ×2 (10:00→20:49)
[2017-07-28] MEDS: LEVOFLOXACIN 500MG 100 ML IV SCH (10:12)
[2017-07-28] MEDS: PANTOPRAZOLE 40 MG/10 ML VIAL IV SCH (10:12)
[2017-07-28] MEDS: FUROSEMIDE 40 MG/4 ML VIAL IV SCH (10:14)
[2017-07-28] MEDS ORDERED: TPN PER PHARMACY IV NR ×8 (20:00)
[2017-07-29] MEDS: IPRATROPIUM BROM 0.5 MG/2.5ML INH SOL NEB SCH ×4 (00:47→19:08)
[2017-07-29 05:11] VITALS: BP 121/55
[2017-07-29] MEDS: metroNIDAZOLE 500MG/100ML 100 ML IV SCH ×3 (06:06→21:30)
[2017-07-29] MEDS: ACCU-CHEK COMFORT CURVE STRIP VI SCH ×4 (06:07→17:31)
[2017-07-29] MEDS: InsuLIN REG 1unit/0.01ml Soln (100units/ml) SC SCH ×4 (06:07→17:32)
[2017-07-29 07:44] LABS: Albumin 3.2 g/dL (3.4-5.0); BUN/Creatinine Ratio 45.6; Bilirubin, Total 0.8 mg/dL (0.2-1.0); Calcium 9.2 mg/dL (8.5-10.1); Magnesium 2.3 mg/dL (1.6-2.6); Phosphorus 2.7 mg/dL (2.5-4.90); Potassium 3.4 mmol/L (3.5-5.1); Total Protein 7.7 g/dL (6.4-8.2)
[2017-07-29 09:18] VITALS: BP 128/61
[2017-07-29] MEDS: LEVOFLOXACIN 500MG 100 ML IV SCH (09:33)
[2017-07-29] MEDS: PANTOPRAZOLE 40 MG/10 ML VIAL IV SCH (09:33)
[2017-07-29] MEDS: FUROSEMIDE 40 MG/4 ML VIAL IV SCH (09:33)
[2017-07-29] MEDS ORDERED: DIGOXIN (250MCG/ML) 2 ML AMPULE IV ONE ×2 (12:45→17:00)
[2017-07-29 13:00] VITALS: BP 133/97
[2017-07-29] MEDS: METOCLOPRAMIDE HCL 5MG/ml INJ 2ml VIAL IV SCH ×2 (14:15→21:30)
[2017-07-29 16:43] VITALS: BP 125/67
[2017-07-29] MEDS ORDERED: DIGOXIN (250MCG/ML) 2 ML AMPULE IV SCH (17:00)
[2017-07-29] MEDS ORDERED: POTASSIUM CHLORIDE 20 MEQ, LIDOCAINE 1% (LOCAL ANESTH.) 2 ML in SODIUM CHL 0.9% 100 ML IV ONE (17:00)
[2017-07-29] MEDS ORDERED: LORazepam 2MG/ML-1ML VIAL IV PRN (18:30)
[2017-07-29] MEDS ORDERED: TPN PER PHARMACY IV NR ×8 (20:00)
[2017-07-29 22:20] VITALS: BP 135/70
[2017-07-29] MEDS: DIGOXIN (250MCG/ML) 2 ML AMPULE IV SCH (23:28)
[2017-07-30] VITALS (7 sets, daily range): BP systolic 116–138; BP diastolic 58–78
[2017-07-30] MEDS: ACCU-CHEK COMFORT CURVE STRIP VI SCH ×5 (02:54→23:54)
[2017-07-30] MEDS: METOCLOPRAMIDE HCL 5MG/ml INJ 2ml VIAL IV SCH ×3 (05:35→22:36)
[2017-07-30] MEDS: metroNIDAZOLE 500MG/100ML 100 ML IV SCH ×3 (05:35→22:36)
[2017-07-30] MEDS: DIGOXIN (250MCG/ML) 2 ML AMPULE IV SCH (05:35)
[2017-07-30] MEDS: InsuLIN REG 1unit/0.01ml Soln (100units/ml) SC SCH ×5 (05:35→23:54)
[2017-07-30 05:38] LABS: Hematocrit 43.7 % (36.0-46.0); Hemoglobin 14.5 g/dL (12.2-16.2); Mean Corpuscular Hemoglobin 33.2 pg (28.0-32.0); Mean Corpuscular Hgb Conc. 33.2 g/dL (32.0-36.0); Mean Corpuscular Volume 100.1 fL (80.0-100.0); Mean Platelet Volume 9.7 fL (6.9-10.8); Platelet Count (auto) 249 10^3/uL (140-450); Red Cell Distribution Width 14.2 % (11.8-14.3); White Blood Cell 10.3 10^3/uL (4.4-10.8)
[2017-07-30 05:40] LABS: Metamyelocytes % 0; Myelocytes % 0; Promyelocytes % 0; Reactive Lymphocytes 0
[2017-07-30 05:49] LABS: Albumin 3.2 g/dL (3.4-5.0); BUN/Creatinine Ratio 43.4; Bilirubin, Total 1.1 mg/dL (0.2-1.0); Calcium 9.5 mg/dL (8.5-10.1); Magnesium 2.3 mg/dL (1.6-2.6); Phosphorus 2.9 mg/dL (2.5-4.90); Potassium 4.4 mmol/L (3.5-5.1); Total Protein 7.9 g/dL (6.4-8.2)
[2017-07-30] MEDS: IPRATROPIUM BROM 0.5 MG/2.5ML INH SOL NEB SCH ×4 (06:40→18:00)
[2017-07-30 06:47] LABS: Platelet Estimate Adequate
[2017-07-30 06:48] LABS: Large Platelets FEW; Stomatocytes Few
[2017-07-30] MEDS: FUROSEMIDE 40 MG/4 ML VIAL IV SCH (09:20)
[2017-07-30] MEDS: LEVOFLOXACIN 500MG 100 ML IV SCH (09:20)
[2017-07-30] MEDS: PANTOPRAZOLE 40 MG/10 ML VIAL IV SCH (09:21)
[2017-07-30] MEDS ORDERED: HALOPERIDOL LACTATE 5 MG/ML INJ VIAL IV ONE (10:30)
[2017-07-30] MEDS ORDERED: TPN PER PHARMACY IV NR ×9 (20:00)
[2017-07-30] MEDS: HALOPERIDOL LACTATE 5 MG/ML INJ VIAL IV PRN (22:37)
[2017-07-31 03:10] VITALS: BP 103/82
[2017-07-31 05:00] VITALS: BP 128/66
[2017-07-31] MEDS: ACCU-CHEK COMFORT CURVE STRIP VI SCH ×3 (05:59→17:26)
[2017-07-31] MEDS: METOCLOPRAMIDE HCL 5MG/ml INJ 2ml VIAL IV SCH ×3 (05:59→22:05)
[2017-07-31] MEDS: metroNIDAZOLE 500MG/100ML 100 ML IV SCH ×3 (05:59→22:05)
[2017-07-31] MEDS: InsuLIN REG 1unit/0.01ml Soln (100units/ml) SC SCH ×3 (06:00→17:26)
[2017-07-31] MEDS: IPRATROPIUM BROM 0.5 MG/2.5ML INH SOL NEB SCH ×4 (06:30→20:26)
[2017-07-31] MEDS: ALBUTEROL SULF 2.5 MG/0.5ML(0.5%) NEB SOLN NEB PRN ×2 (06:30→12:25)
[2017-07-31] MEDS: HALOPERIDOL LACTATE 5 MG/ML INJ VIAL IV PRN ×2 (08:37→22:05)
[2017-07-31 08:50] VITALS: BP 105/55
[2017-07-31 09:30] LABS: BUN/Creatinine Ratio 46.6; Calcium 9.3 mg/dL (8.5-10.1); Phosphorus 3.6 mg/dL (2.5-4.90); Potassium 4.8 mmol/L (3.5-5.1)
[2017-07-31 09:31] LABS: Albumin 3.1 g/dL (3.4-5.0); Bilirubin, Total 1.2 mg/dL (0.2-1.0); Magnesium 2.2 mg/dL (1.6-2.6); Total Protein 7.5 g/dL (6.4-8.2)
[2017-07-31] MEDS: LEVOFLOXACIN 500MG 100 ML IV SCH (09:31)
[2017-07-31] MEDS: PANTOPRAZOLE 40 MG/10 ML VIAL IV SCH (09:31)
[2017-07-31 12:45] VITALS: BP 122/57
[2017-07-31 17:00] VITALS: BP 109/63
[2017-07-31] MEDS ORDERED: TPN PER PHARMACY IV NR ×8 (20:00)
[2017-07-31 21:44] VITALS: BP 133/76
[2017-08-01] MEDS: ACCU-CHEK COMFORT CURVE STRIP VI SCH ×4 (00:35→17:30)
[2017-08-01] MEDS: InsuLIN REG 1unit/0.01ml Soln (100units/ml) SC SCH ×4 (00:35→17:30)
[2017-08-01] MEDS: IPRATROPIUM BROM 0.5 MG/2.5ML INH SOL NEB SCH ×4 (01:16→18:20)
[2017-08-01 04:53] VITALS: BP 128/69
[2017-08-01] MEDS: ALBUTEROL SULF 2.5 MG/0.5ML(0.5%) NEB SOLN NEB PRN ×3 (06:12→18:20)
[2017-08-01] MEDS: metroNIDAZOLE 500MG/100ML 100 ML IV SCH ×3 (06:24→22:27)
[2017-08-01] MEDS: METOCLOPRAMIDE HCL 5MG/ml INJ 2ml VIAL IV SCH (06:24)
[2017-08-01 06:59] LABS: Albumin 2.9 g/dL (3.4-5.0); BUN/Creatinine Ratio 48.4; Bilirubin, Total 1.1 mg/dL (0.2-1.0); Magnesium 2.2 mg/dL (1.6-2.6); Potassium 4.7 mmol/L (3.5-5.1); Total Protein 6.4 g/dL (6.4-8.2)
[2017-08-01] MEDS: HALOPERIDOL LACTATE 5 MG/ML INJ VIAL IV PRN ×2 (09:23→18:25)
[2017-08-01] MEDS: PANTOPRAZOLE 40 MG/10 ML VIAL IV SCH (09:23)
[2017-08-01] MEDS: LEVOFLOXACIN 500MG 100 ML IV SCH (09:23)
[2017-08-01] MEDS ORDERED: HYDROmorphone HCL 2 MG/ML VL IV PRN (11:15)
[2017-08-01 16:20] VITALS: BP 122/63
[2017-08-01] MEDS ORDERED: TPN PER PHARMACY IV NR ×8 (20:00)
[2017-08-01 21:21] VITALS: BP 124/64
[2017-08-02] MEDS: IPRATROPIUM BROM 0.5 MG/2.5ML INH SOL NEB SCH ×4 (00:16→18:59)
[2017-08-02] MEDS: InsuLIN REG 1unit/0.01ml Soln (100units/ml) SC SCH ×3 (06:00→12:00)
[2017-08-02 06:01] LABS: Basophils # (auto) 0.1 uL; Basophils % (auto) 0.5 % (0.0-2.0); Eosinophils # (auto) 0.2 uL; Eosinophils % (auto) 1.6 % (0.0-7.0); Hematocrit 39.1 % (36.0-46.0); Lymphocytes # (auto) 1.8 uL; Lymphocytes % (auto) 18.6 % (10.0-50.0); Mean Corpuscular Hemoglobin 33.2 pg (28.0-32.0); Mean Corpuscular Hgb Conc. 33.2 g/dL (32.0-36.0); Mean Corpuscular Volume 99.9 fL (80.0-100.0); Mean Platelet Volume 10.2 fL (6.9-10.8); Monocytes # (auto) 1.2 uL; Monocytes % (auto) 12.3 % (0.0-12.0); Neutrophils # (auto) 6.6 uL; Nucleated Red Blood Cells % 0.1 %; Platelet Count (auto) 183 10^3/uL (140-450); Red Cell Distribution Width 14.6 % (11.8-14.3); White Blood Cell 9.9 10^3/uL (4.4-10.8)
[2017-08-02] MEDS: ACCU-CHEK COMFORT CURVE STRIP VI SCH ×3 (06:07→12:00)
[2017-08-02] MEDS: metroNIDAZOLE 500MG/100ML 100 ML IV SCH ×3 (06:07→22:55)
[2017-08-02 06:15] LABS: Albumin 2.8 g/dL (3.4-5.0); BUN/Creatinine Ratio 39.7; Bilirubin, Total 0.8 mg/dL (0.2-1.0); Magnesium 2.1 mg/dL (1.6-2.6); Phosphorus 2.7 mg/dL (2.5-4.90); Potassium 4.2 mmol/L (3.5-5.1); Total Protein 6.6 g/dL (6.4-8.2)
[2017-08-02 09:00] VITALS: BP 139/69
[2017-08-02] MEDS: LEVOFLOXACIN 500MG 100 ML IV SCH (10:12)
[2017-08-02] MEDS: PANTOPRAZOLE 40 MG/10 ML VIAL IV SCH (10:12)
[2017-08-02 11:10] VITALS: BP 139/69
[2017-08-02 12:53] VITALS: BP 115/73
[2017-08-02 16:54] VITALS: BP 132/62
[2017-08-02] MEDS ORDERED: TPN PER PHARMACY IV NR ×8 (20:00)
[2017-08-02 21:40] VITALS: BP 133/68
[2017-08-03] MEDS: IPRATROPIUM BROM 0.5 MG/2.5ML INH SOL NEB SCH ×4 (00:58→19:13)
[2017-08-03 05:00] VITALS: BP 119/56
[2017-08-03] MEDS: metroNIDAZOLE 500MG/100ML 100 ML IV SCH (06:16)
[2017-08-03 06:28] LABS: BUN/Creatinine Ratio 34.5; Calcium 8.8 mg/dL (8.5-10.1)
[2017-08-03 09:00] VITALS: BP 135/58
[2017-08-03] MEDS: LEVOFLOXACIN 500MG 100 ML IV SCH (10:00)
[2017-08-03] MEDS ORDERED: HYDROcodone-ACET 5/325MG TAB PO PRN (11:00)
[2017-08-03 12:48] VITALS: BP 147/74
[2017-08-03] MEDS: metroNIDAZOLE 500 MG TAB PO SCH ×2 (15:16→21:49)
[2017-08-03 16:48] VITALS: BP 126/66
[2017-08-03 22:20] VITALS: BP 135/68
[2017-08-04] MEDS: IPRATROPIUM BROM 0.5 MG/2.5ML INH SOL NEB SCH ×4 (01:20→19:00)
[2017-08-04 05:27] VITALS: BP 125/73
[2017-08-04] MEDS: metroNIDAZOLE 500 MG TAB PO SCH ×2 (05:34→14:47)
[2017-08-04 08:38] VITALS: BP 125/58
[2017-08-04] MEDS ORDERED: PANTOPRAZOLE 40 MG TAB PO SCH (10:00)
[2017-08-04] MEDS: LEVOFLOXACIN 500MG 100 ML IV SCH (11:31)
[2017-08-04 13:00] VITALS: BP 149/57
[2017-08-04] MEDS: ACETAMINOPHEN 325 MG TAB PO PRN (15:20)
[2017-08-04 16:11] VITALS: BP 122/78
[2017-08-05] MEDS ORDERED: LEVOFLOXACIN 500 MG TAB PO SCH (10:00)
== END 2017-08-04 19:20 | DRG 853 ==
LOC: ER 05:40 → OVERFLOW 05:41 → EAST 09:33 → CENTRAL 15:19 → TELE-CENTR 07-04 09:53 → DOU IN ICU 07-06 09:20 → ICU WEST 07-06 21:20 → DOU IN ICU 07-25 06:38 → EAST 07-25 11:20 → TELE-EAST 07-25 19:00
PROVIDERS: ADMIT Nurse Practitioner Family; ATTEND Internal Medicine
PROC: 5A1945Z Respiratory Ventilation, 24-96 Consecutive Hours (ICD-10-PCS; 2017-07-06)
PROC: 0BH17EZ Insertion of Endotracheal Airway into Trachea, Via Natural or Artificial Opening (ICD-10-PCS; 2017-07-06)
PROC: 5A1955Z Respiratory Ventilation, Greater than 96 Consecutive Hours (ICD-10-PCS; 2017-07-09)
PROC: 02HV33Z Insertion of Infusion Device into Superior Vena Cava, Percutaneous Approach (ICD-10-PCS; 2017-07-14)
PROC: 5A1945Z Respiratory Ventilation, 24-96 Consecutive Hours (ICD-10-PCS; 2017-07-19)
PROC: 0DTJ0ZZ Resection of Appendix, Open Approach (ICD-10-PCS; principal; 2017-07-31)
DX: A41.9 Sepsis, unspecified organism (principal); K35.2 Acute appendicitis with generalized peritonitis; J69.0 Pneumonitis due to inhalation of food and vomit; J96.01 Acute respiratory failure with hypoxia; E43 Unspecified severe protein-calorie malnutrition; G93.41 Metabolic encephalopathy; N17.0 Acute kidney failure with tubular necrosis; R65.21 Severe sepsis with septic shock; I50.33 Acute on chronic diastolic (congestive) heart failure; K56.7 Ileus, unspecified; E87.0 Hyperosmolality and hypernatremia; D68.59 Other primary thrombophilia; K80.00 Calculus of gallbladder with acute cholecystitis without obstruction; I11.0 Hypertensive heart disease with heart failure; J44.9 Chronic obstructive pulmonary disease, unspecified; K57.90 Diverticulosis of intestine, part unspecified, without perforation or abscess without bleeding; M19.90 Unspecified osteoarthritis, unspecified site; I48.0 Paroxysmal atrial fibrillation; E66.01 Morbid (severe) obesity due to excess calories; Z68.38 Body mass index [BMI] 38.0-38.9, adult; Z68.31 Body mass index [BMI] 31.0-31.9, adult
CPT/HCPCS: 36415; 36569; 36600; 71010; 74000; 74020; 74176; 74250; 80048; 80053; 80202; 81001; 82040; 82150; 82805; 82962; 83605; 83615; 83690; 83735; 84100; 84132; 84443; 84478; 84484; 85007; 85025; 85027; 85610; 85730; 86850; 86900; 86901; 87040; 87070; 87075; 87076; 87077; 87081; 87186; 87205; 87493; 93005; 93306; 93970; 93971; 94002; 94003; 94640; 94660; 94761; 96361; 96365; 96375; 97110; 97116; 97163; 97530; C9113; J0330; J0696; J1100; J1450; J1815; J1956; J2001; J2250; J2405; J2543; J2704; J3490; J7060; J7131